=== PATIENT | male | born 1965 | race African-American/Black ===

== ENCOUNTER 2021-01-08 18:29 | Inpatient (IN) | payer OTHER, SELFPAY ==
--- OUTSIDE RECORDS SUMMARY | 2021-01-08 18:32 | XMS REPORT | Continuity of Care Document ---
:1965 Author Organization [facility] t Address [address] [place] [address] Care Team Providers Name Role Phone Cash RODARTE, Ann Attending Clinician Noemi Frazier DO Attending Clinician Ann Estes Attending Clinician Problems This patient has no known problems. Allergies, Adverse Reactions, Alerts This patient has no known allergies or adverse reactions. Medications This patient has no known medications. Procedures This patient has no known procedures. Encounters Start End Encounter Admission Attending Care Care Encounter Source Date/Time Date/Time Type Type Clinicians Facility Department ID 2021-01-02 2021-01-02 Refill JEREMÍAS Castrejon [id number] 00:00:00 00:00:00 Clayton Tarango [id number] [place] [id number] [facility] [phone] [facility] 044 [facility] 2021-01-01 2021-01-01 Emergency JEREMÍAS Frazier [id number] 11:07:00 14:38:00 Patience Tarango [id number] [place] [id number] [place] [phone] [id number] 2020-12-28 2020-12-28 Office JEREMÍAS Segura [id number] 08:18:27 09:04:52 Visit [facility] [id number] [place] [id number] [place] [phone] [place] 044 Office Building One Results This patient has no known results.
--- NOTE | 2021-01-08 19:42 | EDPHYS ---
Physician Documentation [facility] Name: Jed Holder Age: 55 yrs Sex: Male : 1965 Arrival Date: 01/08/2021 Time: 18:33 Bed 26 Private MD: ED Physician Jaren Fortune HPI: 01/08 19:07 This 55 yrs old Black Male presents to ER via EMS with complaints of SOB, ANXIOUS AND jasen COVID POSITIVE. 19:07 The patient has shortness of breath with light activity. Onset: The symptoms/episode jasen began/occurred 3 day(s) ago. Duration: The symptoms are continuous, and are steadily getting worse. The patient's shortness of breath is aggravated by coughing, is alleviated by rest, sitting up, application of supplemental oxygen. The patient or guardian reports cough, difficulty breathing. Onset: The symptoms/episode began/occurred 1 week(s) ago. Modifying factors: The symptoms are alleviated by the symptoms are aggravated by activity, lying flat. Severity of symptoms: At their worst the symptoms were moderate in the emergency department the symptoms have improved mildly. 19:13 Associated signs and symptoms: Pertinent positives: chest pain, non-productive cough. jasen - Immunization history:: Adult Immunizations unknown. - Family history:: not pertinent. - Social history:: Smoking status: unknown. ROS: 19:07 Constitutional: Negative for fever, chills, and weight loss, Eyes: Negative for injury, jasen pain, redness, and discharge, ENT: Negative for injury, pain, and discharge, Neck: Negative for injury, pain, and swelling, Cardiovascular: Negative for chest pain, palpitations, and edema, Abdomen/GI: Negative for abdominal pain, nausea, vomiting, diarrhea, and constipation, Back: Negative for injury and pain, : Negative for injury, bleeding, discharge, and swelling, MS/Extremity: Negative for injury and deformity, Skin: Negative for injury, rash, and discoloration. 19:07 Neuro: Positive for weakness, of the left hand, left arm and left leg. Exam: 19:07 Constitutional: This is a well developed, well nourished patient who is awake, alert, jasen and in no acute distress. Head/Face: Normocephalic, atraumatic. Eyes: Pupils equal round and reactive to light, extra-ocular motions intact. Lids and lashes normal. Conjunctiva and sclera are non-icteric and not injected. Cornea within normal limits. Periorbital areas with no swelling, redness, or edema. ENT: Nares patent. No nasal discharge, no septal abnormalities noted. Tympanic membranes are normal and external auditory canals are clear. Oropharynx with no redness, swelling, or masses, exudates, or evidence of obstruction, uvula midline. Mucous membranes moist. Neck: Trachea midline, no thyromegaly or masses palpated, and no cervical lymphadenopathy. Supple, full range of motion without nuchal rigidity, or vertebral point tenderness. No Meningismus. Chest/axilla: Normal chest wall appearance and motion. Nontender with no deformity. No lesions are appreciated. Cardiovascular: Regular rate and rhythm with a normal S1 and S2. No gallops, murmurs, or rubs. Normal PMI, no JVD. No pulse deficits. Abdomen/GI: Soft, non-tender, with normal bowel sounds. No distension or tympany. No guarding or rebound. No evidence of tenderness throughout. Back: No spinal tenderness. No costovertebral tenderness. Full range of motion. Male : Normal genitalia with no discharge or lesions. Skin: Warm, dry with normal turgor. Normal color with no rashes, no lesions, and no evidence of cellulitis. MS/ Extremity: Pulses equal, no cyanosis. Neurovascular intact. Full, normal range of motion. Neuro: Awake and alert, GCS 15, oriented to person, place, time, and situation. Cranial nerves II-XII grossly intact. Motor strength 5/5 in all extremities. Sensory grossly intact. Cerebellar exam normal. Normal gait. Psych: Awake, alert, with orientation to person, place and time. Behavior, mood, and affect are within normal limits. 19:07 Respiratory: mild respiratory distress is noted, Respirations: no acute changes, is not noted, labored breathing, is not present, Breath sounds: bronchial sounds, that are mild, are scattered, decreased breath sounds, that are mild, are scattered, rhonchi, are not appreciated, stridor, is not appreciated, Respiratory rate: 23 Vital Signs: 18:33 BP 105 / 58; Pulse 92; Resp 21; Pulse Ox 96% on 2 lpm NC; ap3 18:41 BP 105 / 58; Pulse 94; Resp 23; Pulse Ox 95% on 2 lpm NC; ap3 MDM: 18:47 Patient medically screened. jasen 19:13 Differential diagnosis: Anemia Anxiety Reaction Bronchitis CHF exacerbation, Chronic jasen Obstructive Pulmonary Disease bronchitis, flu. Antibiotic administration: Not indicated. The patient's Wells Deep Vein Thrombosis Score was calculated as follows: Total Score: 0-2 Pts- Low Risk. The patient's pulmonary embolism risk score was calculated as follows: Total Score: 0-2 points. This patient was found to be at low risk for a pulmonary embolism by using the Well's assessment criteria. Immunization status: Influenza vaccine: Data reviewed: vital signs, nurses notes, lab test result(s), EKG, radiologic studies, CT scan, plain films. 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 Test interpretation: by ED physician or midlevel provider: ECG, plain radiologic studies. Counseling: I had a detailed discussion with the patient and/or guardian regarding: the historical points, exam findings, and any diagnostic results supporting the discharge/admit diagnosis, lab results, radiology results, the need for further work-up and treatment in the hospital. 01/08 18:52 Order name: Basic Metabolic Panel [facility] 01/08 18:52 Order name: CBC with Diff [facility] 01/08 18:52 Order name: LFT's [facility] 01/08 18:52 Order name: Magnesium [facility] 01/08 18:52 Order name: NT PRO-BNP [facility] 01/08 18:52 Order name: PT-INR [facility] 01/08 18:52 Order name: Troponin (emerg Dept Use Only) [facility] 01/08 18:52 Order name: Ferritin [facility] 01/08 18:52 Order name: CRP [facility] 01/08 18:52 Order name: Blood Culture Adult (2) [facility] 01/08 18:52 Order name: Basic Metabolic Panel [facility] 01/08 21:44 Order name: COVID-19 : Document "Date of Symptom Onset" if Symptomatic. jb4 01/08 21:54 Order name: CORONAVIRUS [facility] 01/08 23:25 Order name: Urinalysis [facility] 01/08 18:52 Order name: XRAY Chest (1 view); Complete Time: 22:43 [facility] 01/08 18:52 Order name: CT Chest For PE Angio [facility] 01/08 23:48 Order name: SARS-COV-2 RT PCR [facility] 01/09 00:33 Order name: Urine Microscopic Only [facility] 01/09 05:20 Order name: CBC with Automated Diff [facility] 01/09 05:45 Order name: Comprehensive Metabolic Panel [facility] 01/09 05:45 Order name: Lipid Profile [facility] 01/09 05:45 Order name: C-Reactive Protein [facility] 01/09 05:45 Order name: T4 Free [facility] 01/09 05:45 Order name: Magnesium [facility] 01/09 05:45 Order name: Thyroid Stimulating Hormone [facility] 01/09 05:45 Order name: Ferritin [facility] 01/09 06:07 Order name: Manual Differential [facility] 01/09 09:17 Order name: RAD [facility] 01/09 09:59 Order name: US [facility] 01/08 18:52 Order name: EKG; Complete Time: 18:52 [facility] 01/08 18:52 Order name: Cardiac monitoring; Complete Time: 18:57 [facility] 01/08 18:52 Order name: EKG - Nurse/Tech [facility] 01/08 18:52 Order name: IV Saline Lock; Complete Time: 18:57 [facility] 01/08 18:52 Order name: Labs collected and sent; Complete Time: 21:43 [facility] 01/08 18:52 Order name: O2 Per Protocol; Complete Time: 18:57 [facility] 01/08 18:52 Order name: O2 Sat Monitoring; Complete Time: 18:57 [facility] Administered Medications: 21:42 Drug: NS 0.9% 1000 ml Route: IV; Rate: 125 ml/hr; Site: right hand; [facility] 23:30 Follow up: IV Status: Completed infusion 21:42 Drug: NS 0.9% 500 ml Route: IV; Rate: bolus; Site: right hand; 4 23:30 Follow up: IV Status: Completed infusion ea 21:42 Drug: Pepcid (famotidine) 20 mg Route: IVP; Site: right hand; [facility] 01/09 02:23 Follow up: Response: No adverse reaction 01/08 21:42 Drug: Rocephin (cefTRIAXone) 1 grams Route: IV; Rate: per protocol; Site: right hand; 4 23:00 Follow up: IV Status: Completed infusion 21:42 Drug: Zithromax (azithromycin) 500 mg Route: IVPB; Infused Over: 1 hrs; Site: right jb4 hand; 23:00 Follow up: IV Status: Completed infusion; IV Intake: 250ml ea 21:42 Drug: Decadron - Dexamethasone 10 mg Route: IVP; Site: right hand; jb4 22:30 Follow up: Response: No adverse reaction ea 21:42 Drug: Tussionex Pennkinetic ER (chlorpheniramine-hydrocodone) Suspension 5 ml Route: PO;jb4 22:30 Follow up: Response: No adverse reaction ea Disposition Summary: 01/08/21 19:41 Hospitalization Ordered Hospitalization Status: Inpatient Admission jasen Condition: Stable jasen Problem: new jasen Symptoms: have improved jasen Bed/Room Type: Standard jasen Provider: Luis Manuel Rizo(01/08/21 19:42) laJosephine Location: Telemetry/MedSurg (Inpatient)(01/09/21 14:00) dw Room Assignment: [facility](01/09/21 14:00) dw Diagnosis - Dyspnea jasen - Morbid (severe) obesity with alveolar hypoventilation jasen - Pneumonia due to SARS-associated coronavirus - COVID 19 jasen - Hypoxemia jasen Forms: - Medication Reconciliation Form jasen - SBAR form jasen Signatures: Dispatcher [employer] EDVicenta Mejia RN RN Jaren Dunbar MD MD cha Attema, Lee, FIGURE CLERK-C FIGURE CLERK-Cla1 Pedro Jones, RN Bianca Xie RN, ea Corrections: (The following items were deleted from the chart) 19:42 19:41 Julio Quick jasen la1 19:44 19:41 Telemetry/MedSurg (Inpatient) [facility] dw 19:44 19:41 jasen dw 01/09 14:00 08 19:44 [facility] ER HOLD dw dw 01/09 14:00 08 19:44 ERHOLD- dw
--- NOTE | 2021-01-08 19:42 | ER ---
Nurse's Notes [facility] Name: Jed Holder Age: 55 yrs Sex: Male : 1965 Arrival Date: 01/08/2021 Time: 18:33 Bed 26 Private MD: Diagnosis: Dyspnea;Morbid (severe) obesity with alveolar hypoventilation;Pneumonia due to SARS-associated coronavirus-COVID 19;Hypoxemia Presentation: 01/08 18:33 Chief complaint: EMS states: patient was discharged from [facility] this ap3 afternoon, but still feels short of breath. Coronavirus screen: Client reports previous positive COVID test result. Date of collection: January 01, 2021. Ebola Screen: No symptoms or risks identified at this time. Initial Sepsis Screen:. Initial Sepsis Screen: Does the patient meet any 2 criteria? RR > 20 per min. No. Patient's initial sepsis screen is negative. Does the patient have a suspected source of infection? No. Patient's initial sepsis screen is negative. Risk Assessment: Do you want to hurt yourself or someone else? Patient reports no desire to harm self or others. Onset of symptoms was January 01, 2021. Care prior to arrival: Medication(s) given: IV initiated. 20 GA, in the left hand, Oxygen administered. via nasal cannula. 18:33 Method Of Arrival: EMS: [facility] ap3 18:33 Acuity: SHAWNA 3 ap3 Triage Assessment: 18:36 General: Appears uncomfortable, Behavior is cooperative, anxious. Pain: Denies pain. ap3 EENT: Eyes left eye droopy. 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 Gait is unsteady, Speech is normal. Cardiovascular: Capillary refill < 3 seconds Patient's skin is warm and dry. Respiratory: Reports shortness of breath Airway is patent Respiratory effort is even, labored, Respiratory pattern is tachypnea. GI: No signs and/or symptoms were reported involving the gastrointestinal system. : No signs and/or symptoms were reported regarding the genitourinary system. Musculoskeletal: limited ROM on left side due to hx of stroke. - Immunization history:: Adult Immunizations unknown. - Family history:: not pertinent. - Social history:: Smoking status: unknown. Screenin:35 Abuse screen: Denies threats or abuse. Nutritional screening: No deficits noted. ap3 Tuberculosis screening: No symptoms or risk factors identified. Fall Risk Fall in past 12 months (25 points). Secondary diagnosis (15 points) TIA, IV access (20 points). Ambulatory Aid- None/Bed Rest/Nurse Assist (0 pts). Gait- Weak (10 pts.). Mental Status- Oriented to own ability (0 pts). Total Cornell Fall Scale indicates High Risk Score (45 or more points). Fall prevention measures have been instituted. Side Rails Up X 2 Placed Close to Nursing Station Frequent Obs/Assessments Occuring As available patient and family educated on Fall Prevention Program and Strategies. Vital Signs: 18:33 BP 105 / 58; Pulse 92; Resp 21; Pulse Ox 96% on 2 lpm NC; ap3 18:41 BP 105 / 58; Pulse 94; Resp 23; Pulse Ox 95% on 2 lpm NC; ap3 ED Course: 18:33 Patient arrived in ED. ap3 18:35 Triage completed. ap3 18:38 Arm band placed on right wrist. ap3 18:38 Patient has correct armband on for positive identification. Bed in low position. Call ap3 light in reach. Side rails up X2. monitoring analyst on. Pulse ox on. NIBP on. Door closed. Noise minimized. 18:41 Tresa Gunderson, ERIBERTO is Primary Nurse. ap3 18:47 Jaren Fortune MD is Attending Physician. jasen 19:19 XRAY Chest (1 view) In Process Unspecified. EDMS 19:39 Julio Quick MD is Hospitalizing Provider. jasen 19:42 Luis Manuel Rizo DO is Hospitalizing Provider. la1 21:00 No provider procedures requiring assistance completed. Patient admitted, IV remains in jb4 place. Administered Medications: 21:42 Drug: NS 0.9% 1000 ml Route: IV; Rate: 125 ml/hr; Site: right hand; jb4 23:30 Follow up: IV Status: Completed infusion ea 21:42 Drug: NS 0.9% 500 ml Route: IV; Rate: bolus; Site: right hand; jb4 23:30 Follow up: IV Status: Completed infusion ea 21:42 Drug: Pepcid (famotidine) 20 mg Route: IVP; Site: right hand; jb4 01/09 02:23 Follow up: Response: No adverse reaction 01/08 21:42 Drug: Rocephin (cefTRIAXone) 1 grams Route: IV; Rate: per protocol; Site: right hand; jb4 23:00 Follow up: IV Status: Completed infusion ea 21:42 Drug: Zithromax (azithromycin) 500 mg Route: IVPB; Infused Over: 1 hrs; Site: right jb hand; 23:00 Follow up: IV Status: Completed infusion; IV Intake: 250ml ea 21:42 Drug: Decadron - Dexamethasone 10 mg Route: IVP; Site: right hand; jb4 22:30 Follow up: Response: No adverse reaction ea :42 Drug: Tussionex Pennkinetic ER (chlorpheniramine-hydrocodone) Suspension 5 ml Route: PO;[facility] 22:30 Follow up: Response: No adverse reaction ea Intake: 23:00 IV: 250ml; Total: 250ml. ea Outcome: 19:41 Decision to Hospitalize by Provider. jasen 21:41 Admitted to ER Hold. Please see [facility] for further documentation. [facility] 21:41 Condition: stable 21:41 Instructed on the need for admit. 01/09 15:31 Patient left the ED. ph Signatures: Dispatcher [employer] Jaren Butts MD MD cha Attema, Lee, ORE CHARGER-C ORE CHARGER-Cla1 Shilpi Cuadra RN Pedro Robertson ph RN RN jb4 Bianca Castro RN Tresa Carmichael ea RN RN ap3
--- NOTE | 2021-01-08 21:18 | P.HP ---
Certification for Inpatient Patient admitted to: Inpatient With expected LOS: >2 Midnights Patient will require the following post-hospital care: None Practitioner: I am a practitioner with admitting privileges, knowledge of patient current condition, hospital course, and medical plan of care. Services: Services provided to patient in accordance with Admission requirements found in Title 42 Section 412.3 of the Code of Federal Regulations Patient History Date of Service: 01/08/21 Reason for admission: COVID-19 pneumonia History of Present Illness: 55-year-old -Martiniquais male with history of hypertension, previous CVA with left-sided deficit presents the emergency department for shortness of breath. Patient was positive for Covid on 01/01/2021 with increasing shortness of breath since then. Patient was seen at [facility] at that time, chest x-ray report read as clear at that time as well. Patient with significant worsening of chest x-ray at this time currently saturating between 88 and 94% on room air with episodic bouts of coughing currently requiring nasal cannula at 2 to 3 L to maintain saturations. Patient feeling unwell very tachypneic at this time. ED provider wishes to admit for further evaluation of COVID-19 pneumonia with hypoxia. Allergies No Known Allergies Allergy (Unverified 09/27/15 14:00) - Past Medical/Surgical History -: CVA with left-sided deficit -: Hypertension -: None Psychosocial/ Personal History: Lives at home with family - Family History Mother -: Stroke Father -: Heart disease - Social History Smoking Status: Never smoker Alcohol use: No CD- Drugs: No Caffeine use: Yes Place of Residence: Home Review of Systems General: Fever, Chills, Weakness, Malaise Respiratory: Cough, Shortness of Breath Physical Examination - Physical Exam General: Alert, In no apparent distress, Oriented x3, Obese HEENT: Atraumatic, Normocephalic Neck: Supple Respiratory: Diminished, Other (Tachypnea) Cardiovascular: No edema, Normal S1 S2 Capillary refill: <2 Seconds Gastrointestinal: Normal bowel sounds, No tenderness, No masses, No rebound Musculoskeletal: No contractures, No erythema, No tenderness Integumentary: No erythema Neurological: Normal speech, Sensation intact, Abnormal strength (Left-sided deficits from previous CVA) Assessment and Plan - Plan Assessment: Acute hypoxic respiratory failure secondary to COVID-19 pneumonia Elevated INR secondary to Coumadin toxicity CKD 3 Elevated LFTs Hypertension History of CVA with left-sided weakness Plan: Acute hypoxic respiratory failure secondary to COVID-19 pneumonia: Continue with IV steroids, oral supplements, supplemental oxygen as needed, daily room air saturations, room air saturations for home O2. Pulmonology consulted. Elevated INR secondary to Coumadin toxicity: Patient takes Coumadin at home ever since he had a stroke many years prior, will hold Coumadin as INR is elevated at 6. CKD 3: Appears stable when compared to labs performed at [facility] approximately 1 week prior. Elevated LFTs: No abdominal pain or tenderness noted, will check abdominal ultrasound tomorrow. Hypertension: Continue medications adjust as necessary History of CVA with left-sided weakness: Continue medications, stable. DVT PPX: Lovenox Code status: Full Discharge Plan: Home Plan to discharge in: 48 Hours - Advance Directives Does patient have a Living Will: No Does patient have a Durable POA for Healthcare: No - Code Status/Comfort Care Code Status Assessed: Yes (Full code) Critical Care: No Time Spent Managing Pts Care (In Minutes): 55
[2021-01-08] MEDS ORDERED: NA CHLORIDE 0.9% 1,000 ML ONE (21:37)
[2021-01-08] MEDS ORDERED: AZITHROMYCIN 500 MG INJ IVPB ONE (21:37)
[2021-01-08] MEDS ORDERED: NA CHLORIDE 0.9% 250 ML ONE (21:37)
[2021-01-08] MEDS ORDERED: CEFTRIAXONE/SWI 1gm 1 GM/10 ML SYR ONE (21:37)
[2021-01-08] MEDS ORDERED: dexAMETHasone 10 MG/ML VIAL ONE (21:37)
[2021-01-08] MEDS ORDERED: HYDROCODONE/CHLORPHEN 5 ML/OSYR ONE (21:37)
[2021-01-08] MEDS ORDERED: FAMOTIDINE 20 MG/2 ML VIAL IV ONE (21:37)
[2021-01-08] MEDS ORDERED: ONDANSETRON 4 MG/2 ML VIAL IV PRN (21:53)
[2021-01-08 21:54] LABS: Absolute Lymphocytes (CBC) 0.4 K/uL (0.7-4.9); Basophils % 0.3 % (0-1.3); Hematocrit 41.2 % (39.6-49.0); Lymphocytes % 6.7 % (15.3-44.8); MPV 7.9 fL (7.6-11.3)
[2021-01-08] MEDS ORDERED: IVERMECTIN 3 MG TABLET PO SCH (22:00)
[2021-01-08 22:08] VITALS: BMI 38.9
--- NOTE | 2021-01-08 22:11 | RAD REPORT ---
EXAM DESCRIPTION: Meli Single View01/08/2021 7:19 pm CLINICAL HISTORY: Chest pain COMPARISON: 2016 FINDINGS: Rzli-uc-[id number] bilateral pulmonary opacities Heart is borderline enlarged IMPRESSION: Rfuk-fy-[id number] bilateral pulmonary opacities probably pneumonia
[2021-01-08 22:25] LABS: Protime INR 6.68
[2021-01-08 22:53] LABS: Albumin 2.7 g/dL (3.4-5.0); Bilirubin Direct 0.3 mg/dL (0-0.2); Bilirubin Total 0.8 mg/dL (0.2-1.0); Ferritin 739.9 ng/mL (26-388); Magnesium 2.2 mg/dL (1.8-2.4); Potassium 4.8 mmol/L (3.5-5.1); Protein, Total 7.2 g/dL (6.4-8.2); Troponin (Emerg Dept Use Only) 0.02 ng/mL (0.0-0.045)
[2021-01-08 23:24] LABS: Urine Appearance CLOUDY (Clear); Urine Bilirubin NEGATIVE (Negative); Urine Blood TRACE (Negative); Urine Color DK YELLOW (Yellow); Urine Glucose NEGATIVE (Negative); Urine Protein 1+ (Negative)
[2021-01-08 23:25] LABS: Urine Microscopic Reflex ORDER UMIC
[2021-01-09 00:33] LABS: Urine Bacteria <20 /HPF (NONE SEEN); Urine RBC <5 /HPF (NONE SEEN); Urine Urothelial Cells <5 /HPF (NONE SEEN)
[2021-01-09 05:18] LABS: Absolute Lymphocytes (CBC) 0.3 K/uL (0.7-4.9); Basophils % 0.2 % (0-1.3); Hematocrit 40.7 % (39.6-49.0); Lymphocytes % 5.3 % (15.3-44.8); MPV 7.7 fL (7.6-11.3); RBC Red Blood Cell Count 5.07 M/uL (4.33-5.43)
[2021-01-09 05:45] LABS: Albumin 2.7 g/dL (3.4-5.0); Bilirubin Total 0.7 mg/dL (0.2-1.0); Magnesium 2.6 mg/dL (1.8-2.4); Protein, Total 7.3 g/dL (6.4-8.2); Thyroid Stimulating Hormone 0.49 uIU/mL (0.360-3.740)
[2021-01-09 06:06] LABS: Blood Morphology Comment NOT SEEN (NOT SEEN)
[2021-01-09 06:07] LABS: Platelet Estimate ADEQ
--- NOTE | 2021-01-09 06:18 | P.PN ---
Subjective Date of Service: 01/09/21 Primary Care Provider: Dr. Mota Chief Complaint: COVID-19 pneumonia Subjective: Other (Overall stable. Currently on nasal cannula.) Physical Examination - Vital Signs Temperature: 97 F Blood Pressure: 102/86 Pulse: 85 Respirations: 30 Pulse Ox (%): 97 Assessment & Plan Discharge Plan: Home Plan to discharge in: Greater than 2 days Physician Review Additional Text: COVID: Positive, Unvaccinated CXR: COMPARISON: 2016 FINDINGS: [id number] bilateral pulmonary opacities Heart is borderline enlarged IMPRESSION: [id number]-[id number] bilateral pulmonary opacities probably pneumonia Follow-up chest x-ray: COMPARISON: Chest Single View dated 01/08/2021; Chest Single View dated 09/27/2015 FINDINGS: Portable technique limits examination quality. Extensive bilateral pulmonary opacities are noted appearing mildly worsened since comparative study. The heart is normal in size. No displaced fractures. IMPRESSION: Mild worsening in bilateral lung aeration seen since yesterday's study. ABUS: COMPARISON: No comparisons FINDINGS: The gallbladder demonstrates no gallstones. No pericholecystic fluid or gallbladder wall thickening. The common bile duct is normal measuring 1 mm. The liver demonstrates no findings of intrahepatic biliary dilatation. IMPRESSION: Unremarkable examination. Physical exam: General: Alert, In no apparent distress, Oriented x3, Obese HEENT: Atraumatic, Normocephalic Neck: Supple Respiratory: Diminished, currently on 6 L per nasal cannula Cardiovascular: No edema, Normal S1 S2 Capillary refill: <2 Seconds Gastrointestinal: Normal bowel sounds, No tenderness, No masses, No rebound Musculoskeletal: No contractures, No erythema, No tenderness Integumentary: No erythema Neurological: Normal speech, Sensation intact, Abnormal strength (Left-sided deficits from previous CVA) Impression: Acute hypoxic respiratory failure secondary to COVID-19 pneumonia Elevated INR secondary to Coumadin toxicity CKD 3 Elevated LFTs Hypertension History of CVA with left-sided weakness Plan: Acute hypoxic respiratory failure secondary to COVID-19 pneumonia: Continue with IV steroids and supplements. Currently on 6 L per nasal cannula. Continue to wean off. Respiratory to adjust appropriately. Pulmonology consulted to further evaluate. Patient not a candidate for remdesivir, or baricitinib due to elevated liver function. Await further recommendations from pulmonology. Encourage incentive spirometer, proning, ambulation. Will get physical therapy to help with this due to his history of CVA with left-sided weakness. Will need to consider further options of care including LTAC versus skilled placement at discharge. Elevated INR secondary to Coumadin toxicity: Obtain and verify home medication. INR elevated at this time. Continue to hold Coumadin. Will monitor INR closely. CKD 3: Appears stable when compared to labs performed at [facility] approximately 1 week prior. Elevated LFTs: Continue to monitor liver function test. Likely related to Covid Hypertension: Obtain and restart home medication History of CVA with left-sided weakness: Obtain restart home medication. DVT PPX: SCD Code status: Full Advance care [id number] minutes: Need to consider LTAC versus skilled placement or home at discharge Time Spent Managing Pts Care (In Minutes): 55
--- NOTE | 2021-01-09 07:40 | EKG ---
Test Date: 2021-01-08 Test Time: 21:52:50 Sales Contractor: YULIANA MEASUREMENT RESULTS: Intervals: Rate: 96 NM: 136 QRSD: 74 QT: 326 QTc: 411 [place]: P: 31 NM: 136 QRS: 54 T: 44 INTERPRETIVE STATEMENTS: Normal sinus rhythm Normal ECG Compared to ECG 09/27/2015 08:11:10 Left ventricular hypertrophy no longer present Myocardial infarct finding no longer present Electronically Signed On 01-09-21 07:39:44 CDT by Rodolfo Fermin
[2021-01-09] MEDS: IVERMECTIN 3 MG TABLET PO SCH (08:00)
[2021-01-09] MEDS: ZINC SULFATE 220 MG CAP PO SCH (09:00)
[2021-01-09] MEDS: ASCORBIC ACID 500 MG TABLET PO SCH ×4 (09:00→20:14)
[2021-01-09] MEDS ORDERED: METHYLPREDNISOLONE 40 MG INJ IV SCH (09:00)
[2021-01-09] MEDS: VITAMIN D 1000 UNIT TAB PO SCH (09:00)
[2021-01-09] MEDS ORDERED: ASPIRIN EC 81 MG TAB PO SCH (09:00)
[2021-01-09] MEDS ORDERED: ENOXAPARIN 40 MG/0.4 ML SQ SCH (09:00)
[2021-01-09] MEDS: THIAMINE HCL 100 MG TABLET PO SCH (09:00)
[2021-01-09] MEDS ORDERED: METHYLPREDNISOLONE 125 MG INJ ONE (09:11)
[2021-01-09] MEDS ORDERED: ZINC SULFATE 220 MG CAP ONE (09:11)
[2021-01-09] MEDS ORDERED: THIAMINE HCL 100 MG TABLET ONE (09:12)
[2021-01-09] MEDS ORDERED: VITAMIN D 1000 UNIT TAB ONE (09:12)
[2021-01-09] MEDS ORDERED: ASCORBIC ACID 500 MG TABLET ONE (09:12)
--- NOTE | 2021-01-09 09:16 | RAD REPORT ---
EXAM DESCRIPTION: RAD - Chest Single View - 01/09/2021 7:09 am CLINICAL HISTORY: follow up COVID Chest pain. COMPARISON: Chest Single View dated 01/08/2021; Chest Single View dated 09/27/2015 FINDINGS: Portable technique limits examination quality. Extensive bilateral pulmonary opacities are noted appearing mildly worsened since comparative study. The heart is normal in size. No displaced fractures. IMPRESSION: Mild worsening in bilateral lung aeration seen since yesterday's study.
--- NOTE | 2021-01-09 09:58 | RAD REPORT ---
EXAM DESCRIPTION: US - Abdomen Exam Limited - 01/09/2021 9:01 am CLINICAL HISTORY: Elevated LFT COMPARISON: No comparisons FINDINGS: The gallbladder demonstrates no gallstones. No pericholecystic fluid or gallbladder wall t hickening. The common bile duct is normal measuring 1 mm. The liver demonstrates no findings of intrahepatic biliary dilatation. IMPRESSION: Unremarkable examination.
[2021-01-09] MEDS: MELATONIN 5 MG TABLET PO PRN (20:13)
[2021-01-09] MEDS: METHYLPREDNISOLONE 125 MG INJ IV SCH (20:13)
[2021-01-10 04:56] LABS: Absolute Lymphocytes (CBC) 0.2 K/uL (0.7-4.9); Basophils % 0.1 % (0-1.3); Hematocrit 41.6 % (39.6-49.0); Lymphocytes % 2.4 % (15.3-44.8); MPV 7.6 fL (7.6-11.3); RBC Red Blood Cell Count 5.23 M/uL (4.33-5.43)
[2021-01-10 05:12] LABS: Protime INR 10.09
[2021-01-10 05:19] LABS: Albumin 2.5 g/dL (3.4-5.0); Bilirubin Total 0.5 mg/dL (0.2-1.0); Ferritin 792.3 ng/mL (26-388); Magnesium 2.3 mg/dL (1.8-2.4); Potassium 4.9 mmol/L (3.5-5.1); Protein, Total 7.2 g/dL (6.4-8.2)
--- NOTE | 2021-01-10 06:05 | P.PN ---
Subjective Date of Service: 01/10/21 Primary Care Provider: Dr. Mota Chief Complaint: COVID-19 pneumonia Subjective: Improving, Doing well Physical Examination - Vital Signs Temperature: 97.5 F Blood Pressure: 103/66 Pulse: 81 Respirations: 20 Pulse Ox (%): 94 Assessment & Plan Discharge Plan: Home Plan to discharge in: 48 Hours Physician Review Additional Text: COVID: Positive, Unvaccinated CXR: COMPARISON: 2015 FINDINGS: Fgac-[id number] bilateral pulmonary opacities Heart is borderline enlarged IMPRESSION: Ibcr-cj-iwhvefso bilateral pulmonary opacities probably pneumonia Follow-up chest x-ray: COMPARISON: Chest Single View dated 01/08/2021; Chest Single View dated 09/27/2015 FINDINGS: Portable technique limits examination quality. Extensive bilateral pulmonary opacities are noted appearing mildly worsened since comparative study. The heart is normal in size. No displaced fractures. IMPRESSION: Mild worsening in bilateral lung aeration seen since yesterday's study. ABUS: COMPARISON: No comparisons FINDINGS: The gallbladder demonstrates no gallstones. No pericholecystic fluid or gallbladder wall thickening. The common bile duct is normal measuring 1 mm. The liver demonstrates no findings of intrahepatic biliary dilatation. IMPRESSION: Unremarkable examination. CT Scan Head: FINDINGS: No intracranial hemorrhage, hydrocephalus or extra-axial fluid collection.Moderate brain atrophy is present.No areas of brain edema or evidence of midline shift. Gliosis in the left cerebellar hemisphere noted likely related to previous infarction. Mild polypoid mucosal thickening of both maxillary antra and ethmoid air cells. The calvarium is intact. IMPRESSION: No acute intracranial abnormality. Physical exam: General: Alert, In no apparent distress, Oriented x3, Obese HEENT: Atraumatic, Normocephalic Neck: Supple Respiratory: Diminished, currently on 6 L per nasal cannula Cardiovascular: No edema, Normal S1 S2 Capillary refill: <2 Seconds Gastrointestinal: Normal bowel sounds, No tenderness, No masses, No rebound Musculoskeletal: No contractures, No erythema, No tenderness Integumentary: No erythema Neurological: Normal speech, Sensation intact, Abnormal strength (Left-sided deficits from previous CVA) Impression: Acute hypoxic respiratory failure secondary to COVID-19 pneumonia Elevated INR secondary to Coumadin toxicity CKD 3 Elevated LFTs Hypertension History of CVA with left-sided weakness Hyperlipidemia Plan: Acute hypoxic respiratory failure secondary to COVID-19 pneumonia: Patient down to 5 L per nasal cannula. Continue to wean off oxygen. Continue IV steroids and supplements. Respiratory to adjust appropriately. Await recommendations from pulmonary. Patient not a candidate for remdesivir, or baricitinib due to elevated liver function. Encourage incentive spirometer, proning, ambulation. Continue with physical therapy and Occupational Therapy to help ambulate especially with his history of CVA and left-sided weakness. INR still elevated and greater today. CT head unremarkable. Will provide vitamin K and recheck INR closely. Maintain INR between 2 and 3. We will also have speech evaluate swallowing to ensure stability. Anticipate continued improvement. Patient desires to go home at discharge. Elevated INR secondary to Coumadin toxicity: INR still elevated. Vitamin K provided. Will monitor INR closely. Maintain INR between 2 and 3. Continue to hold Coumadin.. CKD 3: No function improved. Monitor closely. Appears stable when compared to labs performed at [facility] approximately 1 week prior. Elevated LFTs: Overall improved. Continue to monitor liver function test. Likely related to Covid. Lipitor decreased to 80 mg daily. He was taking twice daily Hypertension: Pressure stable off medication. Continue to hold carvedilol, lisinopril and Norvasc History of CVA with left-sided weakness: Continue supplementation. Continue medication. Hyperlipidemia: Decrease Lipitor to 80 mg daily DVT PPX: SCD Code status: Full Advance care [id number] minutes: Patient desires to go home at discharge Time Spent Managing Pts Care (In Minutes): 55
--- NOTE | 2021-01-10 06:06 | P.PN ---
Subjective Date of Service: 01/10/21 Primary Care Provider: Dr. Mota Chief Complaint: COVID-19 pneumonia Physical Examination - Vital Signs Temperature: 97.5 F Blood Pressure: 103/66 Pulse: 81 Respirations: 20 Pulse Ox (%): 94 Assessment & Plan Physician Review Additional Text: COVID: Positive, Unvaccinated CXR: COMPARISON: 2015 FINDINGS: Juiz-gw-liyndyfv bilateral pulmonary opacities Heart is borderline enlarged IMPRESSION: Edwe-px-[id number] bilateral pulmonary opacities probably pneumonia Follow-up chest x-ray: COMPARISON: Chest Single View dated 01/08/2021; Chest Single View dated 09/27/2015 FINDINGS: Portable technique limits examination quality. Extensive bilateral pulmonary opacities are noted appearing mildly worsened since comparative study. The heart is normal in size. No displaced fractures. IMPRESSION: Mild worsening in bilateral lung aeration seen since yesterday's study. ABUS: COMPARISON: No comparisons FINDINGS: The gallbladder demonstrates no gallstones. No pericholecystic fluid or gallbladder wall thickening. The common bile duct is normal measuring 1 mm. The liver demonstrates no findings of intrahepatic biliary dilatation. IMPRESSION: Unremarkable examination. Physical exam: General: Alert, In no apparent distress, Oriented x3, Obese HEENT: Atraumatic, Normocephalic Neck: Supple Respiratory: Diminished, currently on 6 L per nasal cannula Cardiovascular: No edema, Normal S1 S2 Capillary refill: <2 Seconds Gastrointestinal: Normal bowel sounds, No tenderness, No masses, No rebound Musculoskeletal: No contractures, No erythema, No tenderness Integumentary: No erythema Neurological: Normal speech, Sensation intact, Abnormal strength (Left-sided deficits from previous CVA) Impression: Acute hypoxic respiratory failure secondary to COVID-19 pneumonia Elevated INR secondary to Coumadin toxicity CKD 3 Elevated LFTs Hypertension History of CVA with left-sided weakness Plan: Acute hypoxic respiratory failure secondary to COVID-19 pneumonia: Continue with IV steroids and supplements. Currently on 6 L per nasal cannula. Continue to wean off. Respiratory to adjust appropriately. Pulmonology consulted to further evaluate. Patient not a candidate for remdesivir, or baricitinib due to elevated liver function. Await further recommendations from pulmonology. Encourage incentive spirometer, proning, ambulation. Will get physical therapy to help with this due to his history of CVA with left-sided weakness. Will need to consider further options of care including LTAC versus skilled placement at discharge. Elevated INR secondary to Coumadin toxicity: Obtain and verify home medication. INR elevated at this time. Continue to hold Coumadin. Will monitor INR closely. CKD 3: Appears stable when compared to labs performed at [facility] approximately 1 week prior. Elevated LFTs: Continue to monitor liver function test. Likely related to Covid Hypertension: Obtain and restart home medication History of CVA with left-sided weakness: Obtain restart home medication. DVT PPX: SCD Code status: Full Advance care [id number] minutes: Need to consider LTAC versus skilled placement or home at discharge
[2021-01-10] MEDS: METHYLPREDNISOLONE 125 MG INJ IV SCH ×2 (07:22→19:59)
[2021-01-10] MEDS: ZINC SULFATE 220 MG CAP PO SCH (07:23)
[2021-01-10] MEDS: THIAMINE HCL 100 MG TABLET PO SCH (07:23)
[2021-01-10] MEDS: VITAMIN D 1000 UNIT TAB PO SCH (07:23)
[2021-01-10] MEDS: ASCORBIC ACID 500 MG TABLET PO SCH ×4 (07:23→19:58)
[2021-01-10] MEDS ORDERED: PHYTONADIONE 1 MG/0.5 ML SYR IM ONE (07:46)
[2021-01-10] MEDS ORDERED: VITAMIN K (ADULT) 10 MG/ML IM ONE (08:00)
--- NOTE | 2021-01-10 10:19 | RAD REPORT ---
EXAM DESCRIPTION: CT - Head Brain Wo Cont - 01/10/2021 9:38 am CLINICAL HISTORY: supratherapeutic INR Headache, drowsiness, CVA history COMPARISON: Head Brain Wo Cont dated 09/27/2015 TECHNIQUE: All CT scans are performed using dose optimization technique as appropriate and may inclu de automated exposure control or mA/KV adjustment according to patient size. FINDINGS: No intracranial hemorrhage, hydrocephalus or extra-axial fluid collection.Moderate brain a trophy is present.No areas of brain edema or evidence of midline shift. Gliosis in the left cerebella r hemisphere noted likely related to previous infarction. Mild polypoid mucosal thickening of both maxillary antra and ethmoid air cells. The calvarium is inta ct. IMPRESSION: No acute intracranial abnormality.
[2021-01-10] MEDS: ATORVASTATIN 80 MG TAB PO SCH (19:57)
[2021-01-10] MEDS: MELATONIN 5 MG TABLET PO PRN (19:58)
[2021-01-10 21:52] LABS: Protime INR 6.59
[2021-01-11] MEDS: BENZONATATE 100 MG CAP PO PRN ×2 (00:08→12:15)
[2021-01-11] MEDS: ACETAMINOPHEN 500 MG TAB PO PRN (00:08)
[2021-01-11 04:25] LABS: Absolute Lymphocytes (CBC) 0.4 K/uL (0.7-4.9); Basophils % 0.3 % (0-1.3); Hematocrit 39.2 % (39.6-49.0); MPV 7.6 fL (7.6-11.3); RBC Red Blood Cell Count 4.96 M/uL (4.33-5.43)
[2021-01-11 04:45] LABS: Albumin 2.3 g/dL (3.4-5.0); Bilirubin Total 1.1 mg/dL (0.2-1.0); C-Reactive Protein 68.6 mg/L (<3.00); Magnesium 2.1 mg/dL (1.8-2.4); Potassium 4.6 mmol/L (3.5-5.1); Protein, Total 6.5 g/dL (6.4-8.2)
[2021-01-11 04:47] LABS: Protime INR 4.77
--- NOTE | 2021-01-11 06:18 | P.PN ---
Subjective Date of Service: 01/11/21 Primary Care Provider: Dr. Mota Chief Complaint: COVID-19 pneumonia Subjective: Other (Patient stable. Still requiring high dose oxygen.) Physical Examination - Vital Signs Temperature: 97.5 F Blood Pressure: 119/70 Pulse: 113 Respirations: 22 Pulse Ox (%): 91 Assessment & Plan Discharge Plan: Home Plan to discharge in: Greater than 2 days Physician Review Additional Text: COVID: Positive, Unvaccinated CXR: COMPARISON: 2015 FINDINGS: Ulxx-gt-verczpom bilateral pulmonary opacities Heart is borderline enlarged IMPRESSION: Xopk-jr-inwuoure bilateral pulmonary opacities probably pneumonia Follow-up chest x-ray: COMPARISON: January 09 FINDINGS: No significant change in moderate to marked bilateral pulmonary opacities. The heart is normal size IMPRESSION: No significant change in the bilateral pneumonia ABUS: COMPARISON: No comparisons FINDINGS: The gallbladder demonstrates no gallstones. No pericholecystic fluid or gallbladder wall thickening. The common bile duct is normal measuring 1 mm. The liver demonstrates no findings of intrahepatic biliary dilatation. IMPRESSION: Unremarkable examination. CT Scan Head: FINDINGS: No intracranial hemorrhage, hydrocephalus or extra-axial fluid collection.Moderate brain atrophy is present.No areas of brain edema or evidence of midline shift. Gliosis in the left cerebellar hemisphere noted likely related to previous infarction. Mild polypoid mucosal thickening of both maxillary antra and ethmoid air cells. The calvarium is intact. IMPRESSION: No acute intracranial abnormality. Physical exam: General: Alert, In no apparent distress, Oriented x3, Obese HEENT: Atraumatic, Normocephalic Neck: Supple Respiratory: Better air movement. Currently on 12 to 15 L oxygen Cardiovascular: No edema, Normal S1 S2 Capillary refill: <2 Seconds Gastrointestinal: Normal bowel sounds, No tenderness, No masses, No rebound Musculoskeletal: No contractures, No erythema, No tenderness Integumentary: No erythema Neurological: Normal speech, Sensation intact, Abnormal strength (Left-sided deficits from previous CVA) Impression: Acute hypoxic respiratory failure secondary to COVID-19 pneumonia Elevated INR secondary to Coumadin toxicity CKD 3 Elevated LFTs Hypertension History of CVA with left-sided weakness Hyperlipidemia Plan: Acute hypoxic respiratory failure secondary to COVID-19 pneumonia: Oxygen requirement has increased. Currently on 12 to 15 L. Continue to wean off oxygen. Continue IV steroids and supplements. CT head unremarkable. Chest x- ray unchanged. Continue incentive spirometer, ambulation, physical therapy. INR elevated but improved with vitamin K. Likely can restart Coumadin at 10 mg tomorrow. Will discuss with pulmonology. Await recommendations. Elevated INR secondary to Coumadin toxicity: INR still elevated but improved.. Vitamin K provided yesterday. Will monitor INR closely. Maintain INR between 2 and 3. Continue to hold Coumadin.. Will restart Coumadin at 10 mg once INR below 3. CKD 3: No function improved. Monitor closely. Appears stable when compared to labs performed at [facility] approximately 1 week prior. Elevated LFTs: Overall improved. Continue to monitor liver function test. Likely related to Covid. Lipitor decreased to 80 mg daily. He was taking twice daily Hypertension: Blood pressure now elevated. Restart carvedilol, lisinopril and hydralazine. History of CVA with left-sided weakness: Continue supplementation. Continue medication. Hyperlipidemia: Lipitor has been decreased to 80 mg daily DVT PPX: SCD Code status: Full Advance care [id number] minutes: Patient desires to go home at discharge Time Spent Managing Pts Care (In Minutes): 55
--- NOTE | 2021-01-11 07:15 | RAD REPORT ---
EXAM DESCRIPTION: Meli Single View01/11/2021 5:01 am CLINICAL HISTORY: Shortness of breath COMPARISON: January 09 FINDINGS: No significant change in moderate to marked bilateral pulmonary opacities. The heart is no rmal size IMPRESSION: No significant change in the bilateral pneumonia
[2021-01-11] MEDS: ZINC SULFATE 220 MG CAP PO SCH (07:21)
[2021-01-11] MEDS: IVERMECTIN 3 MG TABLET PO SCH (07:22)
[2021-01-11] MEDS: THIAMINE HCL 100 MG TABLET PO SCH (07:22)
[2021-01-11] MEDS: VITAMIN D 1000 UNIT TAB PO SCH (07:22)
[2021-01-11] MEDS: ASCORBIC ACID 500 MG TABLET PO SCH ×4 (07:22→20:48)
[2021-01-11] MEDS: METHYLPREDNISOLONE 125 MG INJ IV SCH ×2 (07:23→20:51)
[2021-01-11] MEDS: lisinopriL 20 MG TAB PO SCH (09:59)
[2021-01-11] MEDS: carvediloL 25 MG TAB PO SCH ×2 (09:59→20:51)
[2021-01-11] MEDS ORDERED: NA CHLORIDE 0.9% 500 ML IV ONE (20:27)
[2021-01-11] MEDS: ATORVASTATIN 80 MG TAB PO SCH (20:48)
[2021-01-11] MEDS: HYDRALAZINE HCL 10 MG TABLET PO SCH (20:51)
[2021-01-11] MEDS ORDERED: NA CHLORIDE 0.9% 500 ML ONE (21:09)
[2021-01-12 04:17] LABS: Absolute Lymphocytes (CBC) 0.2 K/uL (0.7-4.9); Basophils % 0.2 % (0-1.3); Hematocrit 39.5 % (39.6-49.0); Lymphocytes % 2.9 % (15.3-44.8); MPV 7.4 fL (7.6-11.3); RBC Red Blood Cell Count 4.94 M/uL (4.33-5.43)
[2021-01-12 04:28] LABS: Protime INR 2.03
[2021-01-12 04:39] LABS: Albumin 2.2 g/dL (3.4-5.0); Bilirubin Total 0.7 mg/dL (0.2-1.0); Magnesium 2.5 mg/dL (1.8-2.4); Potassium 5.3 mmol/L (3.5-5.1); Protein, Total 6.7 g/dL (6.4-8.2)
--- NOTE | 2021-01-12 06:14 | P.PN ---
Subjective Date of Service: 01/12/21 Primary Care Provider: Dr. Mota Chief Complaint: COVID-19 pneumonia Subjective: Other (Patient overall stable. Currently on 15 L.) Physical Examination - Vital Signs Temperature: 97.4 F Blood Pressure: 109/64 Pulse: 80 Respirations: 22 Pulse Ox (%): 93 Assessment & Plan Discharge Plan: Home Plan to discharge in: Greater than 2 days Physician Review Additional Text: COVID: Positive, Unvaccinated CXR: COMPARISON: 2015 FINDINGS: Kimf-eb-xucjhkbz bilateral pulmonary opacities Heart is borderline enlarged IMPRESSION: Dgom-ig-whnhpicr bilateral pulmonary opacities probably pneumonia Follow-up chest x-ray: COMPARISON: January 09 FINDINGS: No significant change in moderate to marked bilateral pulmonary opacities. The heart is normal size IMPRESSION: No significant change in the bilateral pneumonia ABUS: COMPARISON: No comparisons FINDINGS: The gallbladder demonstrates no gallstones. No pericholecystic fluid or gallbladder wall thickening. The common bile duct is normal measuring 1 mm. The liver demonstrates no findings of intrahepatic biliary dilatation. IMPRESSION: Unremarkable examination. CT Scan Head: FINDINGS: No intracranial hemorrhage, hydrocephalus or extra-axial fluid collection.Moderate brain atrophy is present.No areas of brain edema or evidence of midline shift. Gliosis in the left cerebellar hemisphere noted likely related to previous infarction. Mild polypoid mucosal thickening of both maxillary antra and ethmoid air cells. The calvarium is intact. IMPRESSION: No acute intracranial abnormality. Physical exam: General: Alert, In no apparent distress, Oriented x3, Obese HEENT: Atraumatic, Normocephalic Neck: Supple Respiratory: Better air movement. Currently on 15 L Cardiovascular: No edema, Normal S1 S2 Capillary refill: <2 Seconds Gastrointestinal: Normal bowel sounds, No tenderness, No masses, No rebound Musculoskeletal: No contractures, No erythema, No tenderness Integumentary: No erythema Neurological: Normal speech, Sensation intact, Abnormal strength (Left-sided deficits from previous CVA) Impression: Acute hypoxic respiratory failure secondary to COVID-19 pneumonia Elevated INR secondary to Coumadin toxicity CKD 3 Elevated LFTs Hypertension History of CVA with left-sided weakness Hyperlipidemia Plan: Acute hypoxic respiratory failure secondary to COVID-19 pneumonia: Remains stable on 15 L. Will have respiratory continue to wean off oxygen to maintain sats above 93%. Continue with IV steroids and supplements. CT head unremarkable. Chest x-ray remain unchanged. Case discussed with pulmonology. Encourage incentive spirometer, ambulation and physical therapy. Coumadin restarted at 10 mg daily. Will maintain INR between 2 and 3. May need to bridg e with Lovenox. Case discussed with niece. Continue to monitor closely. Anticipate improvement. Elevated INR secondary to Coumadin toxicity: INR was initially elevated upon admission. Vitamin K was provided. INR now 2.03. Restart Coumadin at 10 mg daily. Maintain INR between 2 and 3. May need to bridge with Lovenox if INR less than 2. We will monitor this closely. CT head unremarkable for any bleed CKD 3: Renal function stable. Will monitor closely. Elevated LFTs: LFTs overall stable. This is likely from Covid infection and likely medication. Patient previously on Lipitor 80 mg 1 pill twice daily. Will decrease to 80 mg daily. If LFTs increase may need to hold Lipitor entirely. Hypertension: Continue with carvedilol, lisinopril and hydralazine. History of CVA with left-sided weakness: Continue supplementation. Continue medication. Speech evaluated patient. Recommend to continue mechanical soft. Continue with physical therapy and Occupational Therapy. Hyperlipidemia: Lipitor decreased to 80 mg 1 pill daily. He was previously on 80 mg 1 pill twice daily. May need to hold medication entirely if LFTs increase. DVT PPX: Coumadin Code status: Full Advance care [id number] minutes: Patient desires to go home at discharge Time Spent Managing Pts Care (In Minutes): 55
[2021-01-12] MEDS: VITAMIN D 1000 UNIT TAB PO SCH (08:30)
[2021-01-12] MEDS: carvediloL 25 MG TAB PO SCH ×2 (08:31→20:24)
[2021-01-12] MEDS: THIAMINE HCL 100 MG TABLET PO SCH (08:31)
[2021-01-12] MEDS: BENZONATATE 100 MG CAP PO PRN (08:31)
[2021-01-12] MEDS: METHYLPREDNISOLONE 125 MG INJ IV SCH ×2 (08:31→20:23)
[2021-01-12] MEDS: ASCORBIC ACID 500 MG TABLET PO SCH ×4 (08:31→20:24)
[2021-01-12] MEDS: ZINC SULFATE 220 MG CAP PO SCH (08:31)
[2021-01-12] MEDS: HYDRALAZINE HCL 10 MG TABLET PO SCH ×2 (08:32→20:24)
[2021-01-12] MEDS: lisinopriL 20 MG TAB PO SCH (08:32)
[2021-01-12] MEDS ORDERED: IPRATROPIUM BROM 0.5MG/2.5ML NEB PRN (10:25)
[2021-01-12] MEDS ORDERED: ALBUTEROL 2.5 MG/3 ML NEB SOL NEB PRN (10:25)
[2021-01-12] MEDS: ACETAMINOPHEN 500 MG TAB PO PRN (11:18)
[2021-01-12] MEDS: WARFARIN SODIUM 5 MG TAB PO SCH (16:06)
[2021-01-12] MEDS: ATORVASTATIN 80 MG TAB PO SCH (20:23)
[2021-01-13 04:21] LABS: Protime INR 2.03
[2021-01-13 04:27] LABS: Absolute Lymphocytes (CBC) 0.3 K/uL (0.7-4.9); Basophils % 0.2 % (0-1.3); Hematocrit 39.6 % (39.6-49.0); MPV 7.4 fL (7.6-11.3); RBC Red Blood Cell Count 4.98 M/uL (4.33-5.43)
[2021-01-13 04:42] LABS: Albumin 2.2 g/dL (3.4-5.0); Bilirubin Total 0.6 mg/dL (0.2-1.0); C-Reactive Protein 51.3 mg/L (<3.00); Magnesium 2.2 mg/dL (1.8-2.4); Potassium 5.2 mmol/L (3.5-5.1); Protein, Total 6.5 g/dL (6.4-8.2)
--- NOTE | 2021-01-13 06:10 | P.PN ---
Subjective Date of Service: 01/13/21 Primary Care Provider: Dr. Mota Chief Complaint: COVID-19 pneumonia Subjective: Other (Clinically patient improved. Still on 15 L.) Physical Examination - Vital Signs Temperature: 98.3 F Blood Pressure: 106/59 Pulse: 90 Respirations: 18 Pulse Ox (%): 91 Assessment & Plan Discharge Plan: Home Plan to discharge in: Greater than 2 days Physician Review Additional Text: COVID: Positive, Unvaccinated CXR: COMPARISON: 2016 FINDINGS: Fnxw-kj-urgllquq bilateral pulmonary opacities Heart is borderline enlarged IMPRESSION: Locn-iz-agdqsaac bilateral pulmonary opacities probably pneumonia ABUS: COMPARISON: No comparisons FINDINGS: The gallbladder demonstrates no gallstones. No pericholecystic fluid or gallbladder wall thickening. The common bile duct is normal measuring 1 mm. The liver demonstrates no findings of intrahepatic biliary dilatation. IMPRESSION: Unremarkable examination. CT Scan Head: FINDINGS: No intracranial hemorrhage, hydrocephalus or extra-axial fluid collection.Moderate brain atrophy is present.No areas of brain edema or evidence of midline shift. Gliosis in the left cerebellar hemisphere noted likely related to previous infarction. Mild polypoid mucosal thickening of both maxillary antra and ethmoid air cells. The calvarium is intact. IMPRESSION: No acute intracranial abnormality. Follow-up chest x-ray: COMPARISON: Chest Single View dated 01/11/2021; Chest Single View dated 01/09/2021; Chest Single View dated 01/08/2021; Chest Single View dated 09/27/2015 FINDINGS: Moderate multifocal airspace disease is similar to 01/11/2021. The heart size is within normal limits.No acute osseous abnormality. No significant pleural effusions or pneumothorax. IMPRESSION: No change compared with 01/11/2021 with re- demonstrated widespread airspace disease likely representing multifocal pneumonia. Physical exam: General: Alert, In no apparent distress, Oriented x3, Obese, patient clinically improved. HEENT: Atraumatic, Normocephalic Neck: Supple Respiratory: Better air movement. Currently on 15 L Cardiovascular: No edema, Normal S1 S2 Capillary refill: <2 Seconds Gastrointestinal: Normal bowel sounds, No tenderness, No masses, No rebound Musculoskeletal: No contractures, No erythema, No tenderness Integumentary: No erythema Neurological: Normal speech, Sensation intact, Abnormal strength (Left-sided deficits from previous CVA) Impression: Acute hypoxic respiratory failure secondary to COVID-19 pneumonia Elevated INR secondary to Coumadin toxicity CKD 3 Elevated LFTs Hypertension History of CVA with left-sided weakness Hyperlipidemia Plan: Acute hypoxic respiratory failure secondary to COVID-19 pneumonia: Patient clinically improved. Currently stable on 15 L. CRP and ferritin improved. Continue to wean off oxygen to maintain sats above 93%. Continue with IV steroids and supplements. CT head unremarkable. Chest x-ray remain unchanged. Case discussed with pulmonology. Encourage incentive spirometer, ambulation and physical therapy. Coumadin restarted last night. INR remains between 2 and 3. We will continue to monitor closely. Anticipate improvement over the next 3 to 5 days. I will turn to service over to the hospitalist team tomorrow. I will go plan of care with him. Elevated INR secondary to Coumadin toxicity: INR was initially elevated upon admission. Vitamin K was provided. INR now 2.03. Continue Coumadin 10 mg daily. Maintain INR between 2 and 3. May need to bridge with Lovenox if INR less than 2. We will monitor this closely. CT head unremarkable for any bleed CKD 3: Renal function stable. Will monitor closely. Elevated LFTs: LFTs overall stable and improved. This is likely from Covid infection and likely medication. Patient previously on Lipitor 80 mg 1 pill twice daily. Lipitor changed to once daily. If LFTs increase may need to hold Lipitor entirely. Hypertension: Continue with carvedilol, lisinopril and hydralazine. History of CVA with left-sided weakness: Continue supplementation. Continue medication. Speech evaluated patient. Recommend to continue mechanical soft. Continue with physical therapy and Occupational Therapy. Hyperlipidemia: Lipitor decreased to 80 mg 1 pill daily. He was previously on 80 mg 1 pill twice daily. May need to hold medication entirely if LFTs increase. DVT PPX: Coumadin Code status: Full Advance care minutes: Patient desires to go home at discharge Time Spent Managing Pts Care (In Minutes): 55
--- NOTE | 2021-01-13 08:08 | RAD REPORT ---
EXAM DESCRIPTION: RAD - Chest Single View - 01/13/2021 5:48 am CLINICAL HISTORY: follow up COVID COMPARISON: Chest Single View dated 01/11/2021; Chest Single View dated 01/09/2021; Chest Single View da f[place] 01/08/2021; Chest Single View dated 09/27/2015 FINDINGS: Moderate multifocal airspace disease is similar to 01/11/2021. The heart size is within no rmal limits.No acute osseous abnormality. No significant pleural effusions or pneumothorax. IMPRESSION: No change compared with 01/11/2021 with re- demonstrated widespread airspace disease lik sven representing multifocal pneumonia.
[2021-01-13] MEDS: ASCORBIC ACID 500 MG TABLET PO SCH ×4 (08:49→19:49)
[2021-01-13] MEDS: METHYLPREDNISOLONE 125 MG INJ IV SCH ×2 (08:49→19:47)
[2021-01-13] MEDS: THIAMINE HCL 100 MG TABLET PO SCH (08:49)
[2021-01-13] MEDS: ZINC SULFATE 220 MG CAP PO SCH (08:49)
[2021-01-13] MEDS: VITAMIN D 1000 UNIT TAB PO SCH (08:49)
[2021-01-13] MEDS: HYDRALAZINE HCL 10 MG TABLET PO SCH (08:50)
[2021-01-13] MEDS: carvediloL 25 MG TAB PO SCH ×2 (08:50→20:19)
[2021-01-13] MEDS: lisinopriL 20 MG TAB PO SCH (08:50)
[2021-01-13] MEDS: BENZONATATE 100 MG CAP PO PRN ×2 (08:50→19:49)
--- NOTE | 2021-01-13 11:47 | P.PN ---
Subjective Date of Service: 01/13/21 Primary Care Provider: Dr. Mota Chief Complaint: COVID-19 pneumonia Subjective: Worsening (Not doign well Worse) Review of Systems Respiratory: Shortness of Breath Physical Examination - Vital Signs Temperature: 98.3 F Blood Pressure: 106/59 Pulse: 90 Respirations: 18 Pulse Ox (%): 91 - Physical Exam General: Alert, Oriented x3, Cooperative Assessment & Plan - Problems (Diagnosis) (1) Pneumonia due to COVID-19 virus Current Visit: Yes Status: Acute Plan: Worse add Barcitinib.K and Calcium both elevatedBP low DC lisinopril and hydralazine
[2021-01-13] MEDS: BARICITINIB 2 MG TABLET PO SCH (14:18)
[2021-01-13] MEDS: WARFARIN SODIUM 5 MG TAB PO SCH (16:18)
[2021-01-13] MEDS: ATORVASTATIN 80 MG TAB PO SCH (19:48)
[2021-01-14 07:45] LABS: Absolute Lymphocytes (CBC) 0.5 K/uL (0.7-4.9); Basophils % 0.2 % (0-1.3); Hematocrit 38.2 % (39.6-49.0); Lymphocytes % 5.4 % (15.3-44.8); MPV 7.6 fL (7.6-11.3); RBC Red Blood Cell Count 4.83 M/uL (4.33-5.43)
[2021-01-14 07:57] LABS: Protime INR 2.69
[2021-01-14 08:23] LABS: Albumin 2.2 g/dL (3.4-5.0); Bilirubin Total 0.5 mg/dL (0.2-1.0); Magnesium 2.3 mg/dL (1.8-2.4); Potassium 4.6 mmol/L (3.5-5.1); Protein, Total 6.4 g/dL (6.4-8.2)
[2021-01-14 08:36] LABS: C-Reactive Protein 25.5 mg/L (<3.00)
[2021-01-14] MEDS: ZINC SULFATE 220 MG CAP PO SCH (09:00)
[2021-01-14] MEDS: VITAMIN D 1000 UNIT TAB PO SCH (09:00)
[2021-01-14] MEDS: THIAMINE HCL 100 MG TABLET PO SCH (09:00)
[2021-01-14] MEDS: METHYLPREDNISOLONE 125 MG INJ IV SCH ×2 (09:00→20:26)
[2021-01-14] MEDS: ASCORBIC ACID 500 MG TABLET PO SCH ×4 (09:00→20:26)
[2021-01-14] MEDS: carvediloL 25 MG TAB PO SCH ×2 (09:00→21:00)
[2021-01-14] MEDS: ACETAMINOPHEN 500 MG TAB PO PRN (09:36)
[2021-01-14] MEDS: BARICITINIB 2 MG TABLET PO SCH (12:30)
[2021-01-14] MEDS: WARFARIN SODIUM 5 MG TAB PO SCH (17:09)
[2021-01-14] MEDS: MELATONIN 5 MG TABLET PO PRN (20:25)
--- NOTE | 2021-01-14 20:25 | P.PN ---
Subjective Date of Service: 01/14/21 Primary Care Provider: Dr. Mota Chief Complaint: COVID-19 pneumonia NC Hypoxic CXRY NC Review of Systems General: Weakness Respiratory: Shortness of Breath Physical Examination - Vital Signs Temperature: 98 F Blood Pressure: 111/55 Pulse: 95 Respirations: 30 Pulse Ox (%): 91 Assessment & Plan - Problems (Diagnosis) (1) Pneumonia due to COVID-19 virus Current Visit: Yes Status: Acute Plan: Sat 93% on 15 L started on Barcitinib and steroids/ CW wean pt down
[2021-01-14] MEDS: ATORVASTATIN 80 MG TAB PO SCH (20:26)
[2021-01-15 07:25] LABS: Basophils % 0.2 % (0-1.3); Hematocrit 38.8 % (39.6-49.0); Lymphocytes % 8.7 % (15.3-44.8); MPV 7.5 fL (7.6-11.3)
[2021-01-15 07:35] LABS: Protime INR 3.44
[2021-01-15 07:50] LABS: Albumin 2.2 g/dL (3.4-5.0); Bilirubin Total 0.5 mg/dL (0.2-1.0); C-Reactive Protein 16.4 mg/L (<3.00); Ferritin 392.6 ng/mL (26-388); Magnesium 2.2 mg/dL (1.8-2.4); Potassium 4.4 mmol/L (3.5-5.1); Protein, Total 6.1 g/dL (6.4-8.2)
[2021-01-15] MEDS: ASCORBIC ACID 500 MG TABLET PO SCH ×4 (08:48→20:10)
[2021-01-15] MEDS: THIAMINE HCL 100 MG TABLET PO SCH (08:48)
[2021-01-15] MEDS: ZINC SULFATE 220 MG CAP PO SCH (08:48)
[2021-01-15] MEDS: VITAMIN D 1000 UNIT TAB PO SCH (08:48)
[2021-01-15] MEDS: carvediloL 25 MG TAB PO SCH ×2 (08:49→20:46)
[2021-01-15] MEDS: BARICITINIB 2 MG TABLET PO SCH (08:50)
[2021-01-15] MEDS: METHYLPREDNISOLONE 125 MG INJ IV SCH ×2 (08:50→20:09)
[2021-01-15] MEDS: WARFARIN SODIUM 5 MG TAB PO SCH ×2 (17:00→17:07)
[2021-01-15] MEDS: MELATONIN 5 MG TABLET PO PRN (20:09)
[2021-01-15] MEDS: ATORVASTATIN 80 MG TAB PO SCH (20:10)
[2021-01-16 07:01] LABS: Protime INR 2.97
[2021-01-16] MEDS: THIAMINE HCL 100 MG TABLET PO SCH (08:18)
[2021-01-16] MEDS: carvediloL 25 MG TAB PO SCH ×2 (08:18→21:16)
[2021-01-16] MEDS: ASCORBIC ACID 500 MG TABLET PO SCH ×4 (08:18→21:16)
[2021-01-16] MEDS: ZINC SULFATE 220 MG CAP PO SCH (08:18)
[2021-01-16] MEDS: VITAMIN D 1000 UNIT TAB PO SCH (08:18)
[2021-01-16] MEDS: BARICITINIB 2 MG TABLET PO SCH (08:19)
[2021-01-16] MEDS: METHYLPREDNISOLONE 125 MG INJ IV SCH ×2 (08:19→21:16)
--- NOTE | 2021-01-16 11:09 | P.PN ---
Subjective Date of Service: 01/16/21 Primary Care Provider: Dr. Mota Chief Complaint: COVID-19 pneumonia Stable on high flow Physical Examination - Vital Signs Temperature: 96.9 F Blood Pressure: 158/76 Pulse: 64 Respirations: 25 Pulse Ox (%): 94 - Physical Exam General: Alert, Oriented x3, Cooperative Assessment & Plan - Problems (Diagnosis) (1) Pneumonia due to COVID-19 virus Current Visit: Yes Status: Acute Plan: Nc Still nhigh flow CW to wean down/ meds labs reviewed/inr therapeutic
--- NOTE | 2021-01-16 16:24 | P.PN ---
Subjective Date of Service: 01/14/21 Subjective: No new changes, No C/O voiced, Improving Patient states that he is feeling better. However, patient is coughing quite a bit. Review of Systems 10-point ROS is otherwise unremarkable Physical Examination - Vital Signs Temperature: 97.1 F Blood Pressure: 115/66 Pulse: 94 Respirations: 24 Pulse Ox (%): 91 - Physical Exam General: Alert, In no apparent distress, Other (Patient is poor historian really not able to communicate effectively with him because of mentation issues) Respiratory: Clear to auscultation bilaterally, Normal air movement Cardiovascular: Regular rate/rhythm, Normal S1 S2, No murmurs Gastrointestinal: Normal bowel sounds, Soft and benign, Non-distended, No tenderness Musculoskeletal: No clubbing, No swelling, No tenderness Neurological: Sensation intact, Cranial nerves 3-12 intact - Studies Medications List Reviewed: Yes Assessment & Plan - Problems (Diagnosis) (1) Pneumonia due to COVID-19 virus Current Visit: Yes Status: Acute (2) CVA (cerebral vascular accident) Current Visit: Yes Status: Acute (3) HTN (hypertension) Current Visit: Yes Status: Acute - Plan 1. Continue with IV steroids 2. Monitor inflammatory markers 3. Repeat chest x-ray 4. O2 per protocol 5. Pulmonary consultation 6. Continue with albuterol inhaler therapy; also supportive care 7. GI and DVT prophylaxis Discharge Plan: Home Plan to discharge in: Greater than 2 days - Advance Directives Does patient have a Living Will: No Does patient have a Durable POA for Healthcare: No - Code Status/Comfort Care Code Status Assessed: Yes Code Status: Full Code Critical Care: No Time Spent Managing PTS Care (In Minutes): 35
--- NOTE | 2021-01-16 16:25 | P.PN ---
Date of Service: 01/15/21 Subjective Subjective: Patient is doing well with no new complaints. Clinical status is improving. Review of Systems 10-point ROS is otherwise unremarkable Physical Examination - Vital Signs reviewed - Physical Exam General: Alert, In no apparent distress, Other (Patient is poor historian really not able to communicate effectively with him because of mentation issues) Respiratory: Clear to auscultation bilaterally, Normal air movement Cardiovascular: Regular rate/rhythm, Normal S1 S2, No murmurs Gastrointestinal: Normal bowel sounds, Soft and benign, Non-distended, No tenderness Musculoskeletal: No clubbing, No swelling, No tenderness Neurological: Sensation intact, Cranial nerves 3-12 intact Assessment & Plan - Problems (Diagnosis) (1) Pneumonia due to COVID-19 virus Current Visit: Yes Status: Acute (2) CVA (cerebral vascular accident) Current Visit: Yes Status: Acute (3) HTN (hypertension) Current Visit: Yes Status: Acute - Plan Continue with plan of care as mentioned below: 1. Continue with IV steroids 2. Monitor inflammatory markers 3. Repeat chest x-ray 4. O2 per protocol 5. Pulmonary consultation pending 6. Continue with albuterol inhaler therapy; also supportive care 7. GI and DVT prophylaxis
--- NOTE | 2021-01-16 16:26 | P.PN ---
Date of Service: 01/16/21 Subjective Subjective: Patient is doing much better with no new complaints. Patient clinical status is improving. Patient is not coughing as much. Oxygen requirements have decreased. Review of Systems 10-point ROS is otherwise unremarkable Physical Examination - Vital Signs reviewed - Physical Exam General: Alert, In no apparent distress, Other (Patient is poor historian really not able to communicate effectively with him because of mentation issues) Respiratory: Clear to auscultation bilaterally, Normal air movement Cardiovascular: Regular rate/rhythm, Normal S1 S2, No murmurs Gastrointestinal: Normal bowel sounds, Soft and benign, Non-distended, No tenderness Neurological: Sensation intact, Cranial nerves 3-12 intact Assessment & Plan - Problems (Diagnosis) (1) Pneumonia due to COVID-19 virus Current Visit: Yes Status: Acute (2) CVA (cerebral vascular accident) Current Visit: Yes Status: Acute (3) HTN (hypertension) Current Visit: Yes Status: Acute - Plan Continue with plan of care as mentioned below: 1. Continue with IV steroids 2. Monitor inflammatory markers 3. Repeat chest x-ray as needed 4. O2 per protocol; patient on 15 L wall oxygen 5. Pulmonary consultation pending 6. Continue with albuterol inhaler therapy; also supportive care 7. GI and DVT prophylaxis
[2021-01-16] MEDS: WARFARIN SODIUM 5 MG TAB PO SCH (16:50)
[2021-01-16] MEDS: BENZONATATE 100 MG CAP PO PRN (21:16)
[2021-01-16] MEDS: ATORVASTATIN 80 MG TAB PO SCH (21:16)
[2021-01-16] MEDS: ACETAMINOPHEN 500 MG TAB PO PRN (21:16)
[2021-01-16] MEDS: MELATONIN 5 MG TABLET PO PRN (21:17)
[2021-01-17 06:15] LABS: Absolute Lymphocytes (CBC) 0.5 K/uL (0.7-4.9); Basophils % 0.6 % (0-1.3); Hematocrit 41.9 % (39.6-49.0); Lymphocytes % 2.8 % (15.3-44.8); MPV 7.6 fL (7.6-11.3); Protime INR 2.69
[2021-01-17 06:23] LABS: Potassium 4.8 mmol/L (3.5-5.1); Sodium Level 138 mmol/L (136-145)
[2021-01-17 06:36] LABS: ALT/SGPT 135 U/L (12-78); AST/SGOT 37 U/L (15-37); Albumin 2.5 g/dL (3.4-5.0); Alkaline Phosphatase 59 U/L (45-117); BUN Blood Urea Nitrogen 23 mg/dL (7-18); Bicarbonate 31 mmol/L (21-32); Bilirubin Total 0.5 mg/dL (0.2-1.0); Ferritin 459.4 ng/mL (26-388); Glucose Level 158 mg/dL (74-106); Magnesium 2.4 mg/dL (1.8-2.4)
[2021-01-17] MEDS: VITAMIN D 1000 UNIT TAB PO SCH (08:03)
[2021-01-17] MEDS: METHYLPREDNISOLONE 125 MG INJ IV SCH ×2 (08:03→22:18)
[2021-01-17] MEDS: THIAMINE HCL 100 MG TABLET PO SCH (08:04)
[2021-01-17] MEDS: ASCORBIC ACID 500 MG TABLET PO SCH ×4 (08:04→22:18)
[2021-01-17] MEDS: carvediloL 25 MG TAB PO SCH ×2 (08:04→22:19)
[2021-01-17] MEDS: BARICITINIB 2 MG TABLET PO SCH (08:04)
[2021-01-17] MEDS: ZINC SULFATE 220 MG CAP PO SCH (08:04)
[2021-01-17] MEDS: WARFARIN SODIUM 5 MG TAB PO SCH (17:10)
[2021-01-17] MEDS: ATORVASTATIN 80 MG TAB PO SCH (22:18)
[2021-01-17] MEDS: ACETAMINOPHEN 500 MG TAB PO PRN (22:18)
[2021-01-17] MEDS: BENZONATATE 100 MG CAP PO PRN (22:21)
[2021-01-17] MEDS: MELATONIN 5 MG TABLET PO PRN (22:21)
[2021-01-18 04:18] LABS: Protime INR 2.57
[2021-01-18 04:19] LABS: Absolute Lymphocytes (CBC) 0.5 K/uL (0.7-4.9); Basophils % 0.2 % (0-1.3); Hematocrit 43.4 % (39.6-49.0); Lymphocytes % 2.4 % (15.3-44.8); MPV 7.7 fL (7.6-11.3); RBC Red Blood Cell Count 5.36 M/uL (4.33-5.43)
[2021-01-18 04:29] LABS: Albumin 2.7 g/dL (3.4-5.0); Bilirubin Total 0.5 mg/dL (0.2-1.0); C-Reactive Protein 15.8 mg/L (<3.00); Magnesium 2.3 mg/dL (1.8-2.4); Potassium 5.1 mmol/L (3.5-5.1); Protein, Total 7.1 g/dL (6.4-8.2)
[2021-01-18 05:16] LABS: Blood Morphology Comment NOT SEEN (NOT SEEN); Platelet Estimate INCR
[2021-01-18] MEDS: carvediloL 25 MG TAB PO SCH ×2 (09:00→20:29)
[2021-01-18] MEDS: ASCORBIC ACID 500 MG TABLET PO SCH ×4 (09:00→20:28)
[2021-01-18] MEDS: VITAMIN D 1000 UNIT TAB PO SCH (09:00)
[2021-01-18] MEDS: THIAMINE HCL 100 MG TABLET PO SCH (09:01)
[2021-01-18] MEDS: METHYLPREDNISOLONE 125 MG INJ IV SCH ×2 (09:01→20:29)
[2021-01-18] MEDS: ZINC SULFATE 220 MG CAP PO SCH (09:01)
[2021-01-18] MEDS: BARICITINIB 2 MG TABLET PO SCH (09:01)
--- NOTE | 2021-01-18 09:03 | P.PN ---
Date of Service: 01/17/21 Subjective Subjective: Patient states he is doing better. He gives me a thumbs up when I am asking him how he is doing. He really is not able to communicate verbally that effectively. He has had a stroke. Review of Systems 10-point ROS is otherwise unremarkable Physical Examination - Vital Signs reviewed - Physical Exam General: Alert, In no apparent distress, Other (Patient is poor historian really not able to communicate effectively with him because of mentation issues) Respiratory: Clear to auscultation bilaterally, Normal air movement Cardiovascular: Regular rate/rhythm, Normal S1 S2, No murmurs Gastrointestinal: Normal bowel sounds, Soft and benign, Non-distended, No tenderness Neurological: Sensation intact, Cranial nerves 3-12 intact Assessment & Plan - Problems (Diagnosis) (1) Pneumonia due to COVID-19 virus Current Visit: Yes Status: Acute (2) CVA (cerebral vascular accident) Current Visit: Yes Status: Acute (3) HTN (hypertension) Current Visit: Yes Status: Acute - Plan Continue with plan of care as mentioned below: 1. Continue with IV steroids 2. Monitor inflammatory markers 3. Repeat chest x-ray as needed 4. O2 per protocol; patient on 15 L wall oxygen 5. Pulmonary consultation pending 6. Continue with albuterol inhaler therapy; also supportive care 7. GI and DVT prophylaxis
[2021-01-18] MEDS: WARFARIN SODIUM 5 MG TAB PO SCH (16:53)
[2021-01-18] MEDS: ATORVASTATIN 80 MG TAB PO SCH (20:27)
[2021-01-18] MEDS: MELATONIN 5 MG TABLET PO PRN (20:28)
--- NOTE | 2021-01-18 21:21 | P.PN ---
Subjective Date of Service: 01/18/21 Primary Care Provider: Dr. Mota Chief Complaint: COVID-19 pneumonia Subjective: Improving Doingbetter/on NCan o2 Review of Systems General: Weakness Physical Examination - Vital Signs Temperature: 97.8 F Blood Pressure: 119/69 Pulse: 90 Respirations: 22 Pulse Ox (%): 86 - Studies Medications List Reviewed: Yes Assessment & Plan - Problems (Diagnosis) (1) Pneumonia due to COVID-19 virus Current Visit: Yes Status: Acute Plan: Doign well/ CXRY am wean down on O2 Dc planning/ on Barcitinib/ WBC elevated
[2021-01-19 06:47] LABS: Absolute Lymphocytes (CBC) 0.4 K/uL (0.7-4.9); Basophils % 0.3 % (0-1.3); Hematocrit 44.6 % (39.6-49.0); Lymphocytes % 2.4 % (15.3-44.8); MPV 7.7 fL (7.6-11.3); RBC Red Blood Cell Count 5.54 M/uL (4.33-5.43)
[2021-01-19 07:06] LABS: ALT/SGPT 172 U/L (12-78); AST/SGOT 38 U/L (15-37); Albumin 2.8 g/dL (3.4-5.0); Alkaline Phosphatase 62 U/L (45-117); BUN Blood Urea Nitrogen 25 mg/dL (7-18); Bicarbonate 29 mmol/L (21-32); Bilirubin Total 0.6 mg/dL (0.2-1.0); Ferritin 417.8 ng/mL (26-388); Glucose Level 135 mg/dL (74-106); Magnesium 2.4 mg/dL (1.8-2.4); Potassium 4.9 mmol/L (3.5-5.1); Sodium Level 136 mmol/L (136-145)
--- NOTE | 2021-01-19 07:56 | P.PN ---
Date of Service: 01/18/21 Subjective Subjective: Patient appears to be in really good spirits. When I asked him how he is doing gives me a thumbs up. He is breathing really comfortably. He is on 15 L oxygen through the wall and weak and continue to wean this down. Review of Systems 10-point ROS is otherwise unremarkable Physical Examination - Vital Signs reviewed - Physical Exam General: Alert, In no apparent distress, Other (Patient is poor historian really not able to communicate effectively with him because of mentation issues; however, he appears to be in really good spirit) Respiratory: Diminished but clear overall Cardiovascular: Regular rate/rhythm, Normal S1 S2, No murmurs Gastrointestinal: Normal bowel sounds, Soft and benign, Non-distended, No tenderness Neurological: Sensation intact, Cranial nerves 3-12 intact Assessment & Plan - Problems (Diagnosis) (1) Pneumonia due to COVID-19 virus Current Visit: Yes Status: Acute (2) CVA (cerebral vascular accident) Current Visit: Yes Status: Acute (3) HTN (hypertension) Current Visit: Yes Status: Acute - Plan Continue with plan of care as mentioned below: 1. Continue with IV steroids; can probably wean down to oral steroids and continue weaning down the oxygen. He is on 15 L wall oxygen Oscar can probably move him down to 12 L as he is satting 95%. 2. GI and DVT prophylaxis
[2021-01-19] MEDS: BARICITINIB 2 MG TABLET PO SCH (08:20)
[2021-01-19] MEDS: THIAMINE HCL 100 MG TABLET PO SCH (08:20)
[2021-01-19] MEDS: VITAMIN D 1000 UNIT TAB PO SCH (08:20)
[2021-01-19] MEDS: ASCORBIC ACID 500 MG TABLET PO SCH ×4 (08:20→20:33)
[2021-01-19] MEDS: ZINC SULFATE 220 MG CAP PO SCH (08:20)
[2021-01-19] MEDS: carvediloL 25 MG TAB PO SCH ×2 (08:20→20:33)
[2021-01-19] MEDS: METHYLPREDNISOLONE 125 MG INJ IV SCH ×2 (08:21→20:34)
--- NOTE | 2021-01-19 08:31 | RAD REPORT ---
EXAM DESCRIPTION: RAD - Chest Single View - 01/19/2021 5:40 am CLINICAL HISTORY: pneumonia, COVID-19 COMPARISON: January 13, January 11 TECHNIQUE: AP portable chest image was obtained 01/19/2021 5:40 am . FINDINGS: Lung volumes are quite low, reduced from prior imaging. Large body habitus further limits the evaluation. Bilateral airspace disease is present not substantially different from comparison. There may be sligh t improvement on the left when trying to accommodate the low lung volume affects. Right lung field is probably not substantially different if there were improved lung volume. Trachea is midline. Heart and vasculature are normal. No measurable pleural effusion and no pneumotho rax. No acute bony abnormality seen. No acute aortic findings suspected. IMPRESSION: Bilateral COVID-19 pneumonia findings showing no substantial change from January 13. Left lung field may be slightly improved when adjustments are made for the low lung volume on this cu rrent study.
--- NOTE | 2021-01-19 10:33 | P.PN ---
Subjective Date of Service: 01/19/21 Primary Care Provider: Dr. Mota Chief Complaint: COVID-19 pneumonia Subjective: No new changes, No C/O voiced (States he feels better, on weaning nasal cannula O2 now) Physical Examination - Vital Signs Temperature: 97.5 F Blood Pressure: 115/71 Pulse: 98 Respirations: 22 Pulse Ox (%): 86 - Physical Exam General: Alert, In no apparent distress, Oriented x3, Cooperative HEENT: Atraumatic, Normocephalic, PERRLA Neck: Supple, 2+ carotid pulse no bruit, JVD not distended Respiratory: Clear to auscultation bilaterally, Normal air movement Cardiovascular: No edema, Normal pulses, Regular rate/rhythm, Normal S1 S2 Gastrointestinal: Normal bowel sounds, Soft and benign, Non-distended Neurological: Other (Right facial droop) - Studies Medications List Reviewed: Yes Assessment And Plan Physician Review: Patient Assessed, Agree with Above Assessment and Plan Physician Review Additional Text: COVID: Positive, Unvaccinated CXR: COMPARISON: 2015 FINDINGS: [id number] bilateral pulmonary opacities Heart is borderline enlarged IMPRESSION: [id number] bilateral pulmonary opacities probably pneumonia ABUS: COMPARISON: No comparisons FINDINGS: The gallbladder demonstrates no gallstones. No pericholecystic fluid or gallbladder wall thickening. The common bile duct is normal measuring 1 mm. The liver demonstrates no findings of intrahepatic biliary dilatation. Impression: Acute hypoxic respiratory failure secondary to COVID-19 pneumonia Elevated INR secondary to Coumadin toxicity CKD 3 Elevated LFTs Hypertension History of CVA with left-sided weakness Hyperlipidemia Plan: -O2 gradually, further reduce oxygen to 9 L/min today Patient comfortable with no acute respiratory distress -Increase exercise and ambulation advised Continue IV steroids Still mild elevated leukocytosis at 18,000, continue to monitor trend LFTs improving Continue to monitor inflammatory markersferritin down to the 400s Continue GI and DVT prophylaxis DVT PPX: Coumadin Code status: Full Advance care [id number] minutes: Patient desires to go home at discharge Familynext of kin discussed with, reported loss of his sister. Family advised to discuss with patient
[2021-01-19 11:38] LABS: Blood Morphology Comment NOT SEEN (NOT SEEN); Platelet Estimate INCR
[2021-01-19] MEDS: WARFARIN SODIUM 5 MG TAB PO SCH (16:02)
[2021-01-19] MEDS: ATORVASTATIN 80 MG TAB PO SCH (20:33)
--- NOTE | 2021-01-20 06:03 | P.PN ---
Subjective Date of Service: 01/20/21 Primary Care Provider: Dr. Mota Chief Complaint: COVID-19 pneumonia Subjective: Other (Patient stable on 15 l. Patient reports improvement.) Physical Examination - Vital Signs Temperature: 97.3 F Blood Pressure: 107/73 Pulse: 83 Respirations: 28 Pulse Ox (%): 92 - Studies Medications List Reviewed: Yes Assessment & Plan Discharge Plan: Other (Home versus skilled placement then long-term placement) Plan to discharge in: Greater than 2 days Physician Review Additional Text: COVID: Positive, Unvaccinated CXR: COMPARISON: 2015 FINDINGS: [id number] bilateral pulmonary opacities Heart is borderline enlarged IMPRESSION: [id number] bilateral pulmonary opacities probably pneumonia ABUS: COMPARISON: No comparisons FINDINGS: The gallbladder demonstrates no gallstones. No pericholecystic fluid or gallbladder wall thickening. The common bile duct is normal measuring 1 mm. The liver demonstrates no findings of intrahepatic biliary dilatation. IMPRESSION: Unremarkable examination. CT Scan Head: FINDINGS: No intracranial hemorrhage, hydrocephalus or extra-axial fluid collection.Moderate brain atrophy is present.No areas of brain edema or evidence of midline shift. Gliosis in the left cerebellar hemisphere noted likely related to previous infarction. Mild polypoid mucosal thickening of both maxillary antra and ethmoid air cells. The calvarium is intact. IMPRESSION: No acute intracranial abnormality. Follow-up chest x-ray 01/19: COMPARISON: January 13, January 11 TECHNIQUE: AP portable chest image was obtained 01/19/2021 5:40 am . FINDINGS: Lung volumes are quite low, reduced from prior imaging. Large body habitus further limits the evaluation. Bilateral airspace disease is present not substantially different from comparison. There may be slight improvement on the left when trying to accommodate the low lung volume affects. Right lung field is probably not substantially different if there were improved lung volume. Trachea is midline. Heart and vasculature are normal. No measurable pleural effusion and no pneumothorax. No acute bony abnormality seen. No acute aortic findings suspected. IMPRESSION: Bilateral COVID-19 pneumonia findings showing no substantial change from January 13. Left lung field may be slightly improved when adjustments are made for the low lung volume on this current study. Physical exam: General: Alert, In no apparent distress, Oriented x3, Obese, patient clinically improved. HEENT: Atraumatic, Normocephalic Neck: Supple Respiratory: Better air movement. Currently on 15 L Cardiovascular: No edema, Normal S1 S2 Capillary refill: <2 Seconds Gastrointestinal: Normal bowel sounds, No tenderness, No masses, No rebound Musculoskeletal: No contractures, No erythema, No tenderness Integumentary: No erythema Neurological: Normal speech, Sensation intact, Abnormal strength (Left-sided deficits from previous CVA) Impression: Acute hypoxic respiratory failure secondary to COVID-19 pneumonia Elevated INR secondary to Coumadin toxicity CKD 3 Elevated LFTs Hypertension History of CVA with left-sided weakness Hyperlipidemia Plan: Acute hypoxic respiratory failure secondary to COVID-19 pneumonia: Patient remained stable. Continue IV Solu-Medrol 60 mg 1 pill twice daily and supplementation. Patient also on baricitinib. Will monitor liver function test. Continue to wean off oxygen. Currently on 15 l. Ferritin stable. CRP improved. Will discuss with pulmonology on further recommendation. Patient remains on Coumadin. Need to discuss with family about plan of care. Apparently sister who takes care of the patient recently with Covid. Will need to discuss long-term plan of care. Consider skilled then long-term care. Await recommendations from family. Elevated INR secondary to Coumadin toxicity: Overall stable. Maintain INR between two and three. Continue Coumadin at 5 mg daily. CKD 3: Resolved. Elevated LFTs: Overall stable. Hypertension: Continue carvedilol. History of CVA with left-sided weakness: Continue to monitor closely. Will order physical therapy and Occupational Therapy. Hyperlipidemia: Continue Lipitor 80 mg DVT PPX: Coumadin Code status: Full Advance care [id number] minutes: Patient desires to go home. His sister who took care of the patient unfortunately with Covid. Will need to discuss with family member about plan of care and possibly long-term care. Time Spent Managing Pts Care (In Minutes): 55
[2021-01-20] MEDS: ASCORBIC ACID 500 MG TABLET PO SCH ×4 (08:01→20:52)
[2021-01-20] MEDS: THIAMINE HCL 100 MG TABLET PO SCH (08:02)
[2021-01-20] MEDS: VITAMIN D 1000 UNIT TAB PO SCH (08:02)
[2021-01-20] MEDS: BARICITINIB 2 MG TABLET PO SCH (08:03)
[2021-01-20] MEDS: carvediloL 25 MG TAB PO SCH ×2 (08:03→20:53)
[2021-01-20] MEDS: METHYLPREDNISOLONE 125 MG INJ IV SCH (08:03)
[2021-01-20] MEDS: ZINC SULFATE 220 MG CAP PO SCH (08:04)
--- NOTE | 2021-01-20 12:11 | P.PN ---
Subjective Date of Service: 01/20/21 Primary Care Provider: Dr. Mota Chief Complaint: COVID-19 pneumonia Subjective: Improving Doing and feeling better Review of Systems General: Weakness Respiratory: Shortness of Breath Physical Examination - Vital Signs Temperature: 97.3 F Blood Pressure: 107/73 Pulse: 83 Respirations: 28 Pulse Ox (%): 92 - Physical Exam General: Alert, In no apparent distress, Oriented x3 - Studies Medications List Reviewed: Yes Assessment & Plan - Problems (Diagnosis) (1) Pneumonia due to COVID-19 virus Current Visit: Yes Status: Acute Plan: Doign better discharge palnning O2 ordered Physician Review: Patient Assessed, Agree with Above Assessment and Plan
[2021-01-20] MEDS: WARFARIN SODIUM 5 MG TAB PO SCH (16:09)
[2021-01-20] MEDS: ATORVASTATIN 80 MG TAB PO SCH (20:52)
[2021-01-20] MEDS: METHYLPREDNISOLONE 40 MG INJ IV SCH (20:53)
[2021-01-21 04:29] LABS: Absolute Lymphocytes (CBC) 0.4 K/uL (0.7-4.9); Basophils % 0.2 % (0-1.3); Hematocrit 43.6 % (39.6-49.0); MPV 7.8 fL (7.6-11.3); RBC Red Blood Cell Count 5.35 M/uL (4.33-5.43)
[2021-01-21 04:41] LABS: ALT/SGPT 191 U/L (12-78); AST/SGOT 37 U/L (15-37); Albumin 2.7 g/dL (3.4-5.0); Alkaline Phosphatase 58 U/L (45-117); BUN Blood Urea Nitrogen 24 mg/dL (7-18); Bicarbonate 33 mmol/L (21-32); Bilirubin Total 0.7 mg/dL (0.2-1.0); Ferritin 419.8 ng/mL (26-388); Glucose Level 137 mg/dL (74-106); Magnesium 2.4 mg/dL (1.8-2.4); Potassium 5.1 mmol/L (3.5-5.1); Protein, Total 6.4 g/dL (6.4-8.2); Sodium Level 137 mmol/L (136-145)
[2021-01-21 04:45] LABS: C-Reactive Protein < 2.90 mg/L (<3.00)
[2021-01-21 05:10] LABS: Protime INR 2.04
--- NOTE | 2021-01-21 06:14 | P.PN ---
Subjective Date of Service: 01/21/21 Primary Care Provider: Dr. Mota Chief Complaint: COVID-19 pneumonia Subjective: Improving (Patient sitting for breakfast. Overall stable) Physical Examination - Vital Signs Temperature: 96.9 F Blood Pressure: 100/58 Pulse: 82 Respirations: 18 Pulse Ox (%): 90 - Studies Medications List Reviewed: Yes Assessment & Plan Discharge Plan: LTAC Plan to discharge in: 48 Hours Physician Review Additional Text: COVID: Positive, Unvaccinated CXR: COMPARISON: 2015 FINDINGS: [id number] bilateral pulmonary opacities Heart is borderline enlarged IMPRESSION: [id number] bilateral pulmonary opacities probably pneumonia ABUS: COMPARISON: No comparisons FINDINGS: The gallbladder demonstrates no gallstones. No pericholecystic fluid or gallbladder wall thickening. The common bile duct is normal measuring 1 mm. The liver demonstrates no findings of intrahepatic biliary dilatation. IMPRESSION: Unremarkable examination. CT Scan Head: FINDINGS: No intracranial hemorrhage, hydrocephalus or extra-axial fluid co llection.Moderate brain atrophy is present.No areas of brain edema or evidence of midline shift. Gliosis in the left cerebellar hemisphere noted likely related to previous infarction. Mild polypoid mucosal thickening of both maxillary antra and ethmoid air cells. The calvarium is intact. IMPRESSION: No acute intracranial abnormality. Follow-up chest x-ray 01/19: COMPARISON: January 13, January 11 TECHNIQUE: AP portable chest image was obtained 01/19/2021 5:40 am . FINDINGS: Lung volumes are quite low, reduced from prior imaging. Large body habitus further limits the evaluation. Bilateral airspace disease is present not substantially different from comparison. There may be slight improvement on the left when trying to accommodate the low lung volume affects. Right lung field is probably not substantially different if there were improved lung volume. Trachea is midline. Heart and vasculature are normal. No measurable pleural effusion and no pneumothorax. No acute bony abnormality seen. No acute aortic findings suspected. IMPRESSION: Bilateral COVID-19 pneumonia findings showing no substantial change from January 13. Left lung field may be slightly improved when adjustments are made for the low lung volume on this current study. Physical exam: General: Alert, In no apparent distress, Oriented x3, Obese, patient clinically improved. HEENT: Atraumatic, Normocephalic Neck: Supple Respiratory: Better air movement. Currently on 15 L Cardiovascular: No edema, Normal S1 S2 Capillary refill: <2 Seconds Gastrointestinal: Normal bowel sounds, No tenderness, No masses, No rebound Musculoskeletal: No contractures, No erythema, No tenderness Integumentary: No erythema Neurological: Normal speech, Sensation intact, Abnormal strength (Left-sided deficits from previous CVA) Impression: Acute hypoxic respiratory failure secondary to COVID-19 pneumonia Elevated INR secondary to Coumadin toxicity CKD 3 Elevated LFTs Hypertension History of CVA with left-sided weakness Hyperlipidemia Plan: Acute hypoxic respiratory failure secondary to COVID-19 pneumonia: Patient overall stable. Patient remains on 15 L per nasal cannula. CRP and ferritin improved. Continue with IV Solu-Medrol and baricitinib. Will monitor liver function test. Continue to wean off oxygen to maintain sats above 93%. Discussed with patient and niece yesterday concerning his sister who with Covid. Patient seems to be doing well with the news. Continue current pl an of care. Continue incentive spirometer, ambulation and proning. Patient agreeable to long-term acute care facility placement to continue treatment and rehab. Elevated INR secondary to Coumadin toxicity: Overall stable. Maintain INR between two and three. Continue Coumadin at 5 mg daily. CKD 3: Resolved. Elevated LFTs: Overall stable. Hypertension: Continue carvedilol 25 mg 1 pill twice daily. History of CVA with left-sided weakness: Continue to monitor closely. Continue with physical therapy and Occupational Therapy. Hyperlipidemia: Continue Lipitor 80 mg DVT PPX: Coumadin Code status: Full Advance care [id number] minutes: Continue to pursue long-term acute care facility placement. Patient in agreement. This was discussed with niece as well. Time Spent Managing Pts Care (In Minutes): 55
[2021-01-21 08:52] LABS: Blood Morphology Comment NOT SEEN (NOT SEEN); Platelet Estimate ADEQ
[2021-01-21] MEDS: carvediloL 25 MG TAB PO SCH ×2 (09:00→20:44)
[2021-01-21] MEDS: ASCORBIC ACID 500 MG TABLET PO SCH ×4 (10:03→20:45)
[2021-01-21] MEDS: VITAMIN D 1000 UNIT TAB PO SCH (10:03)
[2021-01-21] MEDS: ZINC SULFATE 220 MG CAP PO SCH (10:03)
[2021-01-21] MEDS: THIAMINE HCL 100 MG TABLET PO SCH (10:04)
[2021-01-21] MEDS: METHYLPREDNISOLONE 40 MG INJ IV SCH ×2 (10:04→20:45)
[2021-01-21] MEDS: BARICITINIB 2 MG TABLET PO SCH (10:06)
[2021-01-21] MEDS: WARFARIN SODIUM 5 MG TAB PO SCH (17:51)
[2021-01-21] MEDS: ATORVASTATIN 80 MG TAB PO SCH (20:45)
[2021-01-22 04:45] LABS: Absolute Lymphocytes (CBC) 0.3 K/uL (0.7-4.9); Basophils % 0.2 % (0-1.3); Hematocrit 42.9 % (39.6-49.0); Lymphocytes % 2.1 % (15.3-44.8); MPV 8.1 fL (7.6-11.3); RBC Red Blood Cell Count 5.25 M/uL (4.33-5.43)
[2021-01-22 04:50] LABS: Protime INR 1.88
[2021-01-22 05:03] LABS: Albumin 2.6 g/dL (3.4-5.0); Bilirubin Total 0.8 mg/dL (0.2-1.0); C-Reactive Protein 4.28 mg/L (<3.00); Ferritin 417.4 ng/mL (26-388); Magnesium 2.3 mg/dL (1.8-2.4); Potassium 4.9 mmol/L (3.5-5.1); Protein, Total 6.2 g/dL (6.4-8.2)
--- NOTE | 2021-01-22 06:02 | P.PN ---
Subjective Date of Service: 01/22/21 Primary Care Provider: Dr. Mota Chief Complaint: COVID-19 pneumonia Subjective: Improving, Doing well Physical Examination - Vital Signs Temperature: 98.4 F Blood Pressure: 122/65 Pulse: 85 Respirations: 16 Pulse Ox (%): 94 - Studies Medications List Reviewed: Yes Assessment & Plan Physician Review Additional Text: COVID: Positive, Unvaccinated CXR: COMPARISON: 2015 FINDINGS: [id number] bilateral pulmonary opacities Heart is borderline enlarged IMPRESSION: [id number] bilateral pulmonary opacities probably pneumonia ABUS: COMPARISON: No comparisons FINDINGS: The gallbladder demonstrates no gallstones. No pericholecystic fluid or gallbladder wall thickening. The common bile duct is normal measuring 1 mm. The liver demonstrates no findings of intrahepatic biliary dilatation. IMPRESSION: Unremarkable examination. CT Scan Head: FINDINGS: No intracranial hemorrhage, hydrocephalus or extra-axial fluid collection.Moderate brain atrophy is present.No areas of brain edema or evidence of midline shift. Gliosis in the left cerebellar hemisphere noted likely related to previous infarction. Mild polypoid mucosal thickening of both maxillary antra and ethmoid air cells. The calvarium is intact. IMPRESSION: No acute intracranial abnormality. Follow-up chest x-ray 01/19: COMPARISON: January 13, January 11 TECHNIQUE: AP portable chest image was obtained 01/19/2021 5:40 am . FINDINGS: Lung volumes are quite low, reduced from prior imaging. Large body habitus further limits the evaluation. Bilateral airspace disease is present not substantially different from comparison. There may be slight improvement on the left when trying to accommodate the low lung volume affects. Right lung field is probably not substantially different if there were improved lung volume. Trachea is midline. Heart and vasculature are normal. No measurable pleural effusion and no pneumothorax. No acute bony abnormality seen. No acute aortic findings suspected. IMPRESSION: Bilateral COVID-19 pneumonia findings showing no substantial change from January 13. Left lung field may be slightly improved when adjustments are made for the low lung volume on this current study. Physical exam: General: Alert, In no apparent distress, Oriented x3, Obese, patient clinically improved. HEENT: Atraumatic, Normocephalic Neck: Supple Respiratory: Better air movement. Currently on 15 L Cardiovascular: No edema, Normal S1 S2 Capillary refill: <2 Seconds Gastrointestinal: Normal bowel sounds, No tenderness, No masses, No rebound Musculoskeletal: No contractures, No erythema, No tenderness Integumentary: No erythema Neurological: Normal speech, Sensation intact, Abnormal strength (Left-sided deficits from previous CVA) Impression: Acute hypoxic respiratory failure secondary to COVID-19 pneumonia Elevated INR secondary to Coumadin toxicity CKD 3 Elevated LFTs Hypertension History of CVA with left-sided weakness Hyperlipidemia Leukocytosis Plan: Acute hypoxic respiratory failure secondary to COVID-19 pneumonia: Patient continues to do well. Currently stable on 15 L per nasal cannula. CRP and ferritin improved. Will decrease IV Solu-Medrol due to leukocytosis. Continue with baricitinib. Continue monitor liver function test. Continue to wean off oxygen to maintain sats above 93%. Continue incentive spirometer, ambulation and proning. Continue with physical therapy. Continue to pursue long-term acute care facility placement for treatment and rehab. Elevated INR secondary to Coumadin toxicity: Overall stable. Maintain INR between 2-3. INR slightly decreased today. Will increase Coumadin to 7.5 daily. Patient previously on 10-12 mg daily at home. CKD 3: Resolved. Elevated LFTs: Overall stable. Hypertension: Continue carvedilol 25 mg 1 pill twice daily. History of CVA with left-sided weakness: Continue to monitor closely. Continue with physical therapy and Occupational Therapy. Hyperlipidemia: Continue Lipitor 80 mg Leukocytosis: Likely from IV steroid. Will decrease IV Solu-Medrol. We will continue to monitor. DVT PPX: Coumadin Code status: Full Advance care [id number] minutes: Continue to pursue long-term acute care facility placement. Time Spent Managing Pts Care (In Minutes): 55
[2021-01-22] MEDS: METHYLPREDNISOLONE 40 MG INJ IV SCH ×3 (09:00→21:30)
[2021-01-22] MEDS: ASCORBIC ACID 500 MG TABLET PO SCH ×4 (10:19→21:29)
[2021-01-22] MEDS: THIAMINE HCL 100 MG TABLET PO SCH (10:20)
[2021-01-22] MEDS: VITAMIN D 1000 UNIT TAB PO SCH (10:20)
[2021-01-22] MEDS: BARICITINIB 2 MG TABLET PO SCH (10:20)
[2021-01-22] MEDS: carvediloL 25 MG TAB PO SCH ×2 (10:20→21:29)
[2021-01-22] MEDS: ZINC SULFATE 220 MG CAP PO SCH (10:21)
[2021-01-22] MEDS: WARFARIN SODIUM 7.5 MG TAB PO SCH (17:45)
[2021-01-22] MEDS: ATORVASTATIN 80 MG TAB PO SCH (21:30)
[2021-01-22] MEDS: MELATONIN 5 MG TABLET PO SCH (23:45)
[2021-01-22] MEDS: ACETAMINOPHEN 500 MG TAB PO PRN (23:45)
[2021-01-23 04:21] LABS: Absolute Lymphocytes (CBC) 0.9 K/uL (0.7-4.9); Basophils % 0.3 % (0-1.3); Hematocrit 43.6 % (39.6-49.0); Lymphocytes % 5.4 % (15.3-44.8); MPV 7.9 fL (7.6-11.3); RBC Red Blood Cell Count 5.36 M/uL (4.33-5.43)
[2021-01-23 04:22] LABS: Protime INR 1.85
[2021-01-23 05:02] LABS: Albumin 2.6 g/dL (3.4-5.0); Bilirubin Total 0.8 mg/dL (0.2-1.0); C-Reactive Protein 6.2 mg/L (<3.00); Ferritin 439.4 ng/mL (26-388); Magnesium 2.4 mg/dL (1.8-2.4); Potassium 4.3 mmol/L (3.5-5.1); Protein, Total 6.3 g/dL (6.4-8.2)
--- NOTE | 2021-01-23 06:05 | P.PN ---
Subjective Date of Service: 01/23/21 Primary Care Provider: Dr. Mota Chief Complaint: COVID-19 pneumonia Subjective: Other (Patient overall stable. Currently on 12 L.) Physical Examination - Vital Signs Temperature: 97.8 F Blood Pressure: 103/63 Pulse: 96 Respirations: 18 Pulse Ox (%): 80 - Studies Medications List Reviewed: Yes Assessment & Plan Discharge Plan: LTAC Plan to discharge in: Greater than 2 days Physician Review Additional Text: COVID: Positive, Unvaccinated CXR: COMPARISON: 2015 FINDINGS: [id number] bilateral pulmonary opacities Heart is borderline enlarged IMPRESSION: [id number] bilateral pulmonary opacities probably pneumonia ABUS: COMPARISON: No comparisons FINDINGS: The gallbladder demonstrates no gallstones. No pericholecystic fluid or gallbladder wall thickening. The common bile duct is normal measuring 1 mm. The liver demonstrates no findings of intrahepatic biliary dilatation. IMPRESSION: Unremarkable examination. CT Scan Head: FINDINGS: No intracranial hemorrhage, hydrocephalus or extra-axial fluid collection.Moderate brain atrophy is present.No areas of brain edema or evidence of midline shift. Gliosis in the left cerebellar hemisphere noted likely related to previous infarction. Mild polypoid mucosal thickening of both maxillary antra and ethmoid air cells. The calvarium is intact. IMPRESSION: No acute intracranial abnormality. Follow-up chest x-ray 01/19: COMPARISON: January 13, January 11 TECHNIQUE: AP portable chest image was obtained 01/19/2021 5:40 am . FINDINGS: Lung volumes are quite low, reduced from prior imaging. Large body habitus further limits the evaluation. Bilateral airspace disease is present not substantially different from comparison. There may be slight improvement on the left when trying to accommodate the low lung volume affects. Right lung field is probably not substantially different if there were improved lung volume. Trachea is midline. Heart and vasculature are normal. No measurable pleural effusion and no pneumothorax. No acute bony abnormality seen. No acute aortic findings suspected. IMPRESSION: Bilateral COVID-19 pneumonia findings showing no substantial change from January 13. Left lung field may be slightly improved when adjustments are made for the low lung volume on this current study. Physical exam: General: Alert, In no apparent distress, Oriented x3, Obese, patient clinically improved. Patient had temperature of 100.7 this afternoon. HEENT: Atraumatic, Normocephalic Neck: Supple Respiratory: Better air movement. Down to 12 L Cardiovascular: No edema, Normal S1 S2 Capillary refill: <2 Seconds Gastrointestinal: Normal bowel sounds, No tenderness, No masses, No rebound Musculoskeletal: No contractures, No erythema, No tenderness Integumentary: No erythema Neurological: Normal speech, Sensation intact, Abnormal strength (Left-sided deficits from previous CVA) Impression: Acute hypoxic respiratory failure secondary to COVID-19 pneumonia Elevated INR secondary to Coumadin toxicity CKD 3 Elevated LFTs Hypertension History of CVA with left-sided weakness Hyperlipidemia Leukocytosis Plan: Acute hypoxic respiratory failure secondary to COVID-19 pneumonia: Patient reports improvement. Down to 12 L per nasal cannula. Patient with leukocytosis. Patient had temperature of 100.7 this afternoon. Will start IV Rocephin and Diflucan. Will discuss with pulmonology. Continue to monitor lab closely. Solu-Medrol was decreased yesterday. Continue baricitinib. Continue to wean off oxygen to maintain sats above 93%. Continue incentive spirometer, ambulation and proning. Continue with physical therapy. Continue to pursue long-term acute care facility placement for treatment and rehab. Elevated INR secondary to Coumadin toxicity: Overall stable. Maintain INR between 2-3. INR slightly decreased today. Coumadin was increased to 7.5 daily. Patient previously on 10-12 mg daily at home. CKD 3: Resolved. Elevated LFTs: Overall stable. Hypertension: Continue carvedilol 25 mg 1 pill twice daily. History of CVA with left-sided weakness: Continue to monitor closely. Continue with physical therapy and Occupational Therapy. Hyperlipidemia: Continue Lipitor 80 mg Leukocytosis: Likely from IV steroid. Solu-Medrol was decreased yesterday. Due to temperature of 100.7 this afternoon we will check blood cultures. Will start Rocephin and Diflucan. Will discuss with pulmonology. DVT PPX: Coumadin Code status: Full Advance care [id number] minutes: Continue to pursue long-term acute care facility placement. Time Spent Managing Pts Care (In Minutes): 55
[2021-01-23] MEDS: METHYLPREDNISOLONE 40 MG INJ IV SCH ×3 (09:00→21:56)
[2021-01-23] MEDS: THIAMINE HCL 100 MG TABLET PO SCH (09:27)
[2021-01-23] MEDS: ZINC SULFATE 220 MG CAP PO SCH (09:27)
[2021-01-23] MEDS: BARICITINIB 2 MG TABLET PO SCH (09:28)
[2021-01-23] MEDS: ASCORBIC ACID 500 MG TABLET PO SCH ×4 (09:28→21:57)
[2021-01-23] MEDS: VITAMIN D 1000 UNIT TAB PO SCH (09:28)
[2021-01-23] MEDS: carvediloL 25 MG TAB PO SCH ×2 (09:28→21:00)
--- NOTE | 2021-01-23 12:14 | P.PN ---
Subjective Date of Service: 01/23/21 Primary Care Provider: Dr. Mota Chief Complaint: COVID-19 pneumonia Improviong slowly Review of Systems General: Weakness Respiratory: Shortness of Breath Physical Examination - Vital Signs Temperature: 100.7 F Blood Pressure: 118/59 Pulse: 98 Respirations: 28 Pulse Ox (%): 92 - Physical Exam General: Alert, Oriented x3, Cooperative - Studies Medications List Reviewed: Yes Assessment & Plan - Problems (Diagnosis) (1) Pneumonia due to COVID-19 virus Current Visit: Yes Status: Acute Plan: Improving weaning down O2 Physician Review: Patient Assessed, Agree with Above Assessment and Plan
[2021-01-23] MEDS ORDERED: CEFTRIAXONE 1 GM/NS 50 ML 1 GM/50 ML BAG IV SCH (15:06)
[2021-01-23] MEDS ORDERED: FLUCONAZOLE 100mg IVPB 100 MG/50 ML BAG IV SCH (15:06)
[2021-01-23] MEDS: CEFTRIAXONE/SWI 1gm 1 GM/10 ML SYR IVP SCH (18:24)
[2021-01-23] MEDS: WARFARIN SODIUM 7.5 MG TAB PO SCH (18:25)
[2021-01-23] MEDS: ACETAMINOPHEN 500 MG TAB PO PRN (21:57)
[2021-01-23] MEDS: MELATONIN 5 MG TABLET PO SCH (21:57)
[2021-01-23] MEDS: ATORVASTATIN 80 MG TAB PO SCH (21:59)
[2021-01-24 04:16] LABS: Absolute Lymphocytes (CBC) 0.4 K/uL (0.7-4.9); Basophils % 0.3 % (0-1.3); Hematocrit 42.8 % (39.6-49.0); Lymphocytes % 2.6 % (15.3-44.8); MPV 7.9 fL (7.6-11.3); RBC Red Blood Cell Count 5.29 M/uL (4.33-5.43)
[2021-01-24 05:18] LABS: Albumin 2.6 g/dL (3.4-5.0); Bilirubin Total 0.9 mg/dL (0.2-1.0); C-Reactive Protein 22.7 mg/L (<3.00); Magnesium 2.3 mg/dL (1.8-2.4); Potassium 4.9 mmol/L (3.5-5.1); Protein, Total 6.3 g/dL (6.4-8.2)
--- NOTE | 2021-01-24 06:11 | P.PN ---
Subjective Date of Service: 01/24/21 Primary Care Provider: Dr. Mota Chief Complaint: COVID-19 pneumonia Subjective: Improving Physical Examination - Vital Signs Temperature: 97.3 F Blood Pressure: 102/66 Pulse: 97 Respirations: 24 Pulse Ox (%): 90 - Studies Medications List Reviewed: Yes Assessment & Plan Discharge Plan: LTAC Physician Review Additional Text: COVID: Positive, Unvaccinated CXR: COMPARISON: 2015 FINDINGS: [id number] bilateral pulmonary opacities Heart is borderline enlarged IMPRESSION: [id number] bilateral pulmonary opacities probably pneumonia ABUS: COMPARISON: No comparisons FINDINGS: The gallbladder demonstrates no gallstones. No pericholecystic fluid or gallbladder wall thickening. The common bile duct is normal measuring 1 mm. The liver demonstrates no findings of intrahepatic biliary dilatation. IMPRESSION: Unremarkable examination. CT Scan Head: FINDINGS: No intracranial hemorrhage, hydrocephalus or extra-axial fluid collection.Moderate brain atrophy is present.No areas of brain edema or evidence of midline shift. Gliosis in the left cerebellar hemisphere noted likely related to previous infarction. Mild polypoid mucosal thickening of both maxillary antra and ethmoid air cells. The calvarium is intact. IMPRESSION: No acute intracranial abnormality. Follow-up chest x-ray 01/19: COMPARISON: January 13, January 11 TECHNIQUE: AP portable chest image was obtained 01/19/2021 5:40 am . FINDINGS: Lung volumes are quite low, reduced from prior imaging. Large body habitus further limits the evaluation. Bilateral airspace disease is present not substantially different from comparison. There may be slight improvement on the left when trying to accommodate the low lung volume affects. Right lung field is probably not substantially different if there were improved lung volume. Trachea is midline. Heart and vasculature are normal. No measurable pleural effusion and no pneumothorax. No acute bony abnormality seen. No acute aortic findings suspected. IMPRESSION: Bilateral COVID-19 pneumonia findings showing no substantial change from January 13. Left lung field may be slightly improved when adjustments are made for the low lung volume on this current study. Physical exam: General: Alert, In no apparent distress, Oriented x3, Obese, patient clinically improved. Patient had temperature of 100.7 this afternoon. HEENT: Atraumatic, Normocephalic Neck: Supple Respiratory: Better air movement. Continue 5 L Cardiovascular: No edema, Normal S1 S2 Capillary refill: <2 Seconds Gastrointestinal: Normal bowel sounds, No tenderness, No masses, No rebound Musculoskeletal: No contractures, No erythema, No tenderness Integumentary: No erythema Neurological: Normal speech, Sensation intact, Abnormal strength (Left-sided deficits from previous CVA) Impression: Acute hypoxic respiratory failure secondary to COVID-19 pneumonia Elevated INR secondary to Coumadin toxicity CKD 3 Elevated LFTs Hypertension History of CVA with left-sided weakness Hyperlipidemia Leukocytosis Plan: Acute hypoxic respiratory failure secondary to COVID-19 pneumonia: Currently on 5 L per nasal cannula. Continue IV Rocephin and Diflucan. Overall stable. Patient remains on Solu-Medrol and baricitinib. Patient has been accepted to LTAC. Patient will be transferred. Elevated INR secondary to Coumadin toxicity: Overall stable. Maintain INR between 2-3. INR slightly decreased today. Coumadin was increased to 7.5 daily. Patient previously on 10-12 mg daily at home. CKD 3: Resolved. Elevated LFTs: Overall stable. Hypertension: Continue carvedilol 25 mg 1 pill twice daily. History of CVA with left-sided weakness: Continue to monitor closely. Continue with physical therapy and Occupational Therapy. Hyperlipidemia: Continue Lipitor 80 mg Leukocytosis: Likely from IV steroid. Solu-Medrol was decreased yesterday. Due to temperature of 100.7 this afternoon we will check blood cultures. Will start Rocephin and Diflucan. Will discuss with pulmonology. DVT PPX: Coumadin Code status: Full Advance care [id number] minutes: Continue to pursue long-term acute care facility placement. Time Spent Managing Pts Care (In Minutes): 55
--- NOTE | 2021-01-24 07:21 | RAD REPORT ---
EXAM DESCRIPTION: Meli Single View01/24/2021 7:09 am CLINICAL HISTORY: Shortness breath COMPARISON: January 19 FINDINGS: No change extensive bilateral pulmonary opacities. Heart is probably mildly enlarged IMPRESSION: No change in extensive bilateral pulmonary opacities
[2021-01-24] MEDS: CEFTRIAXONE/SWI 1gm 1 GM/10 ML SYR IVP SCH (08:06)
[2021-01-24] MEDS: METHYLPREDNISOLONE 40 MG INJ IV SCH (08:06)
[2021-01-24] MEDS: ZINC SULFATE 220 MG CAP PO SCH (08:07)
[2021-01-24] MEDS: carvediloL 25 MG TAB PO SCH (08:07)
[2021-01-24] MEDS: THIAMINE HCL 100 MG TABLET PO SCH (08:07)
[2021-01-24] MEDS: ASCORBIC ACID 500 MG TABLET PO SCH ×2 (08:07→12:22)
[2021-01-24] MEDS: BARICITINIB 2 MG TABLET PO SCH (08:10)
[2021-01-24] MEDS: VITAMIN D 1000 UNIT TAB PO SCH (08:10)
[2021-01-24 08:16] LABS: Protime INR 1.93
[2021-01-24 13:15] VITALS: O2SAT 93
[2021-01-24 13:23] VITALS: BP 102/66; TEMP 97.3
--- NOTE | 2021-01-24 13:25 | P.DS ---
Admission Date: 01/08/21 Discharge Date: 01/24/21 Primary Care Provider: Dr. Mota Disposition: [facility]URSING PROGRAM [facility]AC[facility] Discharge Condition: GOOD Reason for Admission: COVID-19 pneumonia Consultations: Pulmonary-Dr. Pacheco Procedures: COVID: Positive, Unvaccinated CXR: COMPARISON: 2015 FINDINGS: [id number]-[id number] bilateral pulmonary opacities Heart is borderline enlarged IMPRESSION: [id number]-zj-fhzjpulg bilateral pulmonary opacities probably pneumonia ABUS: COMPARISON: No comparisons FINDINGS: The gallbladder demonstrates no gallstones. No pericholecystic fluid or gallbladder wall thickening. The common bile duct is normal measuring 1 mm. The liver demonstrates no findings of intrahepatic biliary dilatation. IMPRESSION: Unremarkable examination. CT Scan Head: FINDINGS: No intracranial hemorrhage, hydrocephalus or extra-axial fluid collection.Moderate brain atrophy is present.No areas of brain edema or evidence of midline shift. Gliosis in the left cerebellar hemisphere noted likely related to previous infarction. Mild polypoid mucosal thickening of both maxillary antra and ethmoid air cells. The calvarium is intact. IMPRESSION: No acute intracranial abnormality. Follow-up chest x-ray 01/24/2021: COMPARISON: January 19 FINDINGS: No change extensive bilateral pulmonary opacities. Heart is probably mildly enlarged IMPRESSION: No change in extensive bilateral pulmonary opacities Medical problem list Acute hypoxic respiratory failure secondary to COVID-19 pneumonia Elevated INR secondary to Coumadin toxicity CKD 3 Elevated LFTs Hypertension History of CVA with left-sided weakness Hyperlipidemia Leukocytosis Brief History of Present Illness: 55-year-old -[place] male with history of hypertension, previous CVA with left-sided deficit presents the emergency department for shortness of breath. Patient was positive for Covid on 01/01/2021 with increasing shortness of breath since then. Patient was seen at [facility] at that time, chest x-ray report read as clear at that time as well. Patient with significant worsening of chest x-ray at this time currently saturating between 88 and 94% on room air with episodic bouts of coughing currently requiring nasal cannula at 2 to 3 L to maintain saturations. Patient feeling unwell very tachypneic at this time. Patient admitted for treatment Hospital Course: Patient presented with acute hypoxic respiratory failure secondary to COVID-19 pneumonia. Patient was admitted for treatment. Pulmonology was consulted. Patient admission has been prolonged. Patient has improved slowly. Patient was placed on IV Solu-Medrol and baricitinib. Patient remains on both medications. Other medications include vitamin supplementation. Most recently patient had some leukocytosis and placed on Rocephin and Diflucan. Patient was evaluated for long-term acute care facility placement. Patient has been approved. Patient currently on 5 L per nasal cannula. Overall stable and improving. Patient stable for discharge to long-term acute care facility placement to continue current therapy and treatment. Patient with underlying chronic anticoagulation therapyCoumadin for history of CVA and residual left-sided weakness. Patient was initially supratherapeutic. Patient required vitamin K. Coumadin have been adjusted. Currently patient on Coumadin 7.5 mg daily. INR will need to be monitored closely. Maintain INR between 2 and 3. Further adjustment can be done at the LTAC facility. Patient with chronic renal disease stage III. Patient has done well. Overall patient renal function back to baseline. Patient with hypertension. Overall stable. At discharge patient will continue with carvedilol 25 mg 1 pill twice daily. Patient with hyperlipidemia. At discharge patient will continue with Lipitor 80 mg daily. Patient with history of CVA with residual left-sided weakness. Patient continues to do well with physical therapy. Vital Signs/Physical Exam: Temp Pulse Resp BP Pulse Ox 97.3 F 97 H 24 H 102/66 90 L 01/24/21 13:23 01/24/21 13:23 01/24/21 13:23 01/24/21 13:23 01/24/21 13:23 General: Alert, In no apparent distress, Oriented x3, Cooperative HEENT: Atraumatic Neck: Supple Respiratory: Clear to auscultation bilaterally, Other (Currently on 5 L per nasal cannula) Cardiovascular: Normal pulses, Regular rate/rhythm Gastrointestinal: Normal bowel sounds, No tenderness, No masses, No rebound, No guarding Musculoskeletal: No erythema, No tenderness, No warmth Integumentary: No tenderness/swelling Neurological: Normal speech, Normal affect, Abnormal strength (Left-sided residual weakness) Laboratory Data at Discharge: WBC 13.50 K/uL (4.3-10.9) H D 01/24/21 03:45 Hgb 13.9 g/dL (13.6-17.9) 01/24/21 03:45 Hct 42.8 % (39.6-49.0) 01/24/21 03:45 Plt Count 263 K/uL (152-406) 01/24/21 03:45 PT 22.3 SECONDS (9.5-12.5) H 01/24/21 08:05 INR 1.93 01/24/21 08:05 Sodium 138 mmol/L (136-145) 01/24/21 03:45 Potassium 4.9 mmol/L (3.5-5.1) 01/24/21 03:45 BUN 20 mg/dL (7-18) H 01/24/21 03:45 Creatinine 1.06 mg/dL (0.55-1.3) 01/24/21 03:45 Glucose 141 mg/dL (74-106) H 01/24/21 03:45 Magnesium 2.3 mg/dL (1.8-2.4) 01/24/21 03:45 Total Bilirubin 0.9 mg/dL (0.2-1.0) 01/24/21 03:45 AST 29 U/L (15-37) 01/24/21 03:45 ALT 169 U/L (12-78) H 01/24/21 03:45 Alkaline Phosphatase 63 U/L (45-117) 01/24/21 03:45 Triglycerides 142 mg/dL (<150) 01/09/21 04:51 Cholesterol 99 mg/dL (<200) 01/09/21 04:51 HDL Cholesterol 26 mg/dL (40-60) L 01/09/21 04:51 Cholesterol/HDL Ratio 3.81 01/09/21 04:51 Home Medications: Atorvastatin Calcium [Lipitor] 80 mg PO BID 01/09/21 Carvedilol [Coreg] 25 mg PO BID 01/09/21 Hydralazine [Apresoline*] 15 mg PO BID 01/09/21 Warfarin Sodium 2.5 mg PO BEDTIME 01/09/21 Warfarin Sodium 10 mg PO BEDTIME 01/09/21 lisinopriL [Lisinopril] 20 mg PO DAILY 01/09/21 Physician Discharge Instructions: Patient presented with acute hypoxic respiratory failure secondary to COVID-19 pneumonia. Patient was admitted for treatment. Pulmonology was consulted. Patient admission has been prolonged. Patient has improved slowly. Patient was placed on IV Solu-Medrol and baricitinib. Patient remains on both medications. Other medications include vitamin supplementation. Most recently patient had some leukocytosis and placed on Rocephin and Diflucan. Patient was evaluated for long-term acute care facility placement. Patient has been approved. Divya ient currently on 5 L per nasal cannula. Overall stable and improving. Patient stable for discharge to long-term acute care facility placement to continue current therapy and treatment. Patient with underlying chronic anticoagulation therapyCoumadin for history of CVA and residual left-sided weakness. Patient was initially supratherapeutic. Patient required vitamin K. Coumadin have been adjusted. Currently patient on Coumadin 7.5 mg daily. INR will need to be monitored closely. Maintain INR between 2 and 3. Further adjustment can be done at the LTAC facility. Patient with chronic renal disease stage III. Patient has done well. Overall patient renal function back to baseline. Patient with hypertension. Overall stable. At discharge patient will continue with carvedilol 25 mg 1 pill twice daily. Patient with hyperlipidemia. At discharge patient will continue with Lipitor 80 mg daily. Patient with history of CVA with residual left-sided weakness. Patient continues to do well with physical therapy. Diet: AHA Activity: Fall precautions Followup: Unknown,U [Primary Care Provider] - Time spent managing pt's care (in minutes): 55
== END 2021-01-24 14:40 | DRG 177 ==
LOC: ER 18:29 → ERHOLD 21:25 → 4TH 01-09 15:12
PROVIDERS: ADMIT Family Medicine; ATTEND Family Medicine
DX: U07.1 COVID-19 (principal); J12.82 Pneumonia due to coronavirus disease 2019; J96.01 Acute respiratory failure with hypoxia; I69.354 Hemiplegia and hemiparesis following cerebral infarction affecting left non-dominant side; T45.511A Poisoning by anticoagulants, accidental (unintentional), initial encounter; R79.1 Abnormal coagulation profile; I12.9 Hypertensive chronic kidney disease with stage 1 through stage 4 chronic kidney disease, or unspecified chronic kidney disease; N18.30 Chronic kidney disease, stage 3 unspecified; E78.5 Hyperlipidemia, unspecified; D72.829 Elevated white blood cell count, unspecified; R79.89 Other specified abnormal findings of blood chemistry; E66.01 Morbid (severe) obesity due to excess calories; Z68.38 Body mass index [BMI] 38.0-38.9, adult
CPT/HCPCS: 36415; 70450; 71045; 76705; 80048; 80053; 80061; 80076; 81003; 81015; 82728; 83605; 83735; 83880; 84132; 84439; 84443; 84484; 85025; 85610; 86140; 87040; 87077; 87186; 87205; 92610; 93005; 94003; 94010; 96365; 96368; 96375; 97110; 97112; 97116; 97161; 97530; 99285; J0456; J0696; J1100; J1450; J2405; J2920; J2930; J3430; J7030; J7040; J7050; U0003